=== PATIENT | male | born 1935 | race Caucasian/White ===

== ENCOUNTER 2017-08-22 14:32 | Inpatient (IN) ==
--- NOTE | 2017-08-22 14:37 | Emergency Department Note ---
Disposition Clinical Impression: Vision loss of left eye, Central retinal artery occlusion of left eye, Stroke Disposition: Admitted As Inpatient Condition: Good General Adult HPI - General Chief complaint: ED Eye Problems Stated complaint: vision loss to left eye Time Seen by Provider: 08/22/17 14:33 - Related Data Home Medications Medication Instructions Recorded Confirmed Dorzolamide/Timolol [Cosopt] 1 drop BOTH EYES BID 08/22/17 08/22/17 Escitalopram [Lexapro] 10 mg PO DAILY 08/22/17 08/22/17 Latanoprost [Xalatan] 1 drop BOTH EYES HS 08/22/17 08/22/17 Terazosin [Hytrin] 1 mg PO HS 08/22/17 08/22/17 Vit C/E/Zn/Coppr/Lutein/Zeaxan 1 cap PO BID 08/22/17 08/22/17 [Preservision Areds 2 Softgel] Allergies Allergy/AdvReac Type Severity Reaction Status Date / Time codeine AdvReac Anaphylaxis Verified 08/22/17 17:48 Course Vital Signs Temperature 97.7 F 08/22/17 14:33 Pulse Rate 68 08/22/17 14:33 Respiratory Rate 16 08/22/17 14:33 Blood Pressure 160/84 08/22/17 14:33 O2 Sat by Pulse Oximetry 99 08/22/17 14:33 Temperature 97.9 F 08/23/17 11:30 Pulse Rate 79 08/23/17 11:30 Respiratory Rate 18 08/23/17 11:30 Blood Pressure 143/75 08/23/17 11:30 O2 Sat by Pulse Oximetry 95 08/23/17 11:30 Oxygen Delivery Oxygen Delivery Room Air Medical Decision Making - Lab Data Result diagrams: 08/23/17 07:15 08/23/17 07:15 Lab Results 08/22/17 08/22/17 08/22/17 Range/Units 14:53 14:53 14:53 WBC 8.4 (4.3-11.1) K/mcL RBC 5.73 H (4.19-5.50) M/mcL Hgb 13.9 (12.9-16.9) g/dL Hct 45.5 (37.5-50.1) % MCV 79.4 L (83.0-100.0) fL MCH 24.3 L (28.0-33.3) pg MCHC 30.5 L (31.6-35.5) g/dL RDW 14.3 (11.5-14.5) % Plt Count 252 (140-400) K/mcL MPV 10.1 (9.4-12.4) fL Immature Gran % 0.2 (0-4) % Seg Neutrophils % 60.6 % Lymphocytes % 26.4 % Monocytes % 8.6 % Eosinophils % 3.0 % Basophils % 1.2 % Neutrophils # 5.1 (1.6-8.9) K/mcL Lymphocytes # 2.2 (0.6-4.6) K/mcL Monocytes # 0.7 (0.0-1.3) K/mcL Eosinophils # 0.3 (0.0-0.6) K/mcL Basophils # 0.1 (0.0-0.2) K/mcL ESR (0-10) mm/hr PT 11.3 (9.4-12.1) Seconds INR 1.1 Sodium 136 (136-145) mEq/L Potassium 4.3 (3.5-4.5) mEq/L Chloride 102 (98-109) mEq/L Carbon Dioxide 24 (19-29) mEq/L BUN 11 (8-26) mg/dL Creatinine 0.85 (0.72-1.25) mg/dL Est GFR ( Amer) > 60 (> 60) Est GFR (Non-Af Amer) > 60 (> 60) BUN/Creatinine Ratio 13 (6-26) Glucose 107 H (70-99) mg/dL Calculated Osmolality 282 (280-300) Calcium 9.7 (8.6-10.8) mg/dL Total Bilirubin 0.5 (0.2-1.2) mg/dL AST 14 (5-34) Units/L ALT 11 (0-55) Units/L Alkaline Phosphatase 105 (38-126) Units/L C-Reactive Protein 11 H (Less than 5) mg/L Serum Total Protein 7.4 (6.0-8.3) g/dL Albumin 3.9 (3.5-5.0) g/dL Globulin 3.5 (2.4-3.5) g/dL Albumin/Globulin Ratio 1.1 (1.1-2.2) 10/27/17 Range/Units 14:54 WBC (4.3-11.1) K/mcL RBC (4.19-5.50) M/mcL Hgb (12.9-16.9) g/dL Hct (37.5-50.1) % MCV (83.0-100.0) fL MCH (28.0-33.3) pg MCHC (31.6-35.5) g/dL RDW (11.5-14.5) % Plt Count (140-400) K/mcL MPV (9.4-12.4) fL Immature Gran % (0-4) % Seg Neutrophils % % Lymphocytes % % Monocytes % % Eosinophils % % Basophils % % Neutrophils # (1.6-8.9) K/mcL Lymphocytes # (0.6-4.6) K/mcL Monocytes # (0.0-1.3) K/mcL Eosinophils # (0.0-0.6) K/mcL Basophils # (0.0-0.2) K/mcL ESR 81 H (0-10) mm/hr PT (9.4-12.1) Seconds INR Sodium (136-145) mEq/L Potassium (3.5-4.5) mEq/L Chloride (98-109) mEq/L Carbon Dioxide (19-29) mEq/L BUN (8-26) mg/dL Creatinine (0.72-1.25) mg/dL Est GFR ( Amer) (> 60) Est GFR (Non-Af Amer) (> 60) BUN/Creatinine Ratio (6-26) Glucose (70-99) mg/dL Calculated Osmolality (280-300) Calcium (8.6-10.8) mg/dL Total Bilirubin (0.2-1.2) mg/dL AST (5-34) Units/L ALT (0-55) Units/L Alkaline Phosphatase (38-126) Units/L C-Reactive Protein (Less than 5) mg/L Serum Total Protein (6.0-8.3) g/dL Albumin (3.5-5.0) g/dL Globulin (2.4-3.5) g/dL Albumin/Globulin Ratio (1.1-2.2) Attestation Statement - Attestation Attestation: I examined this patient and my medical decision-making was reviewed with the Resident Physician. I agree with the documented findings, disposition and treatment plan as described except to the extent set forth below. [id number] time provided Patient arrives as a transfer from the [facility]. He states he went to bed at 21:00 last night without symptoms. He awoke at 5 AM which is 9 hours and 30 minutes prior to arrival with complete vision loss out of his left eye. He was diagnosed with suspected central retinal artery occlusion by an import/export administrator at the [facility]. He was sent here for further evaluation. He appears in no acute distress on exam
--- NOTE | 2017-08-22 14:57 | Emergency Department Note ---
Disposition Clinical Impression: Vision loss of left eye, Central retinal artery occlusion of left eye Stroke Qualifiers: CVA mechanism: unspecified Qualified Code(s): I63.9 - Cerebral infarction, unspecified Disposition: Admitted As Inpatient Condition: Good General Adult HPI - General Chief complaint: ED Eye Problems Stated complaint: vision loss to left eye Time Seen by Provider: 08/22/17 14:33 Source: patient, EMS Limitations: no limitations - History of Present Illness HPI Narrative: Patient presents from the [facility] where he was previously evaluated for possible retinal artery occlusion. The patient states that he went to bed without symptoms. Woke up at 5 AM with the symptoms. Has spent the day at the [facility] where he saw ophthalmology and was diagnosed with retinal artery occlusion. The patient was transferred here for further evaluation as they do not have CT scan available to them. Patient's medications include dorzolamide/timolol eyedrops. Escitalopram. Maintain a June eyedrops. Multivitamin. Past medical history includes helicobacter gastritis. Pancreatitis. Hyponatremia. Glaucoma. Macular degeneration. Upper GI bleed. Arthritis. Hyperlipidemia. BPH. Pain Scale: 0 - Related Data Home Medications Medication Instructions Recorded Confirmed Dorzolamide/Timolol [Cosopt] 1 drop BOTH EYES BID 08/22/17 08/22/17 Escitalopram [Lexapro] 10 mg PO DAILY 08/22/17 08/22/17 Latanoprost [Xalatan] 1 drop BOTH EYES HS 08/22/17 08/22/17 Terazosin [Hytrin] 1 mg PO HS 08/22/17 08/22/17 Vit C/E/Zn/Coppr/Lutein/Zeaxan 1 cap PO BID 08/22/17 08/22/17 [Preservision Areds 2 Softgel] Allergies Allergy/AdvReac Type Severity Reaction Status Date / Time codeine AdvReac Anaphylaxis Verified 08/22/17 17:48 Review of Systems: GENERAL: ~No weight change, change in appetite, thirst, fever or chills. HEENT: ~Complete vision loss of left eye CARDIOPULMONARY: ~No chest pain, palpitations or shortness of breath. GASTROINTESTINAL: ~No anorexia, nausea or vomiting. GENITOURINARY: ~No dysuria or pyuria. ENDOCRINE: ~No goiter, lethargy or heat/cold intolerance. HEMATOLOGY/ONCOLOGY: ~No pallor, bruising or bleeding. MUSCULOSKELETAL: ~No change in strength. No swelling. NEUROLOGIC: ~No headache or loss of consciousness. PSYCHIATRIC: ~No change in personality, affect or depression. Past Medical History - Past Medical History Medical history: Reports: hyperlipidemia Psychiatric history: Reports: no psych history - Social History Smoking Status: Never smoker Smokeless Tobacco Status: No Alcohol use: Reports: none Drug use: Reports: none Physical Exam General: Well appearing, nontoxic, no acute distress Head: Normocephalic Atraumatic Eyes: PERRL, EOMI, vision loss in the left eye. Is able to differentiate light and dark in left eye. ENT: Airway patent, no stridor Neck: supple, no meningismus Chest: Lungs clear to auscultation bilateral Cardiac: Regular rate and rhythm, no murmurs, rubs or gallops Abdomen: soft, nontender, nondistended; no guarding, rebound, or tenderness to percussion Musculoskeletal: Calves symmetric, nontender, no palpable cord Skin: No rash, normal skin tone Neuro: Alert and Oriented to person, place, and time; No focal deficit, CN 2-12 symmetric and intact - General Limitations: no limitations General appearance: alert, in no apparent distress Course - Consultations Consultation #1: The case discussed discussed with Dr. Delgado who was at bedside with initial impression and plan as follows: Patient with some central retinal artery occlusion. Patient to be started on high-dose steroids. Patient will receive 1 g of Solu-Medrol in the emergency department and then be continued on 250 mg every 6 hours while in the hospital. Patient will be discharged with 80 to 100 mg of prednisone daily after discharge. Case was discussed with Dr. Lawson of the retina group listed below. The patient is to follow-up with her after discharge. Follow-up should be 2-3 days upon discharge. The patient should undergo a temporal artery biopsy for further evaluation of possible giant cell arteritis. ENT has been consultative and they may be able to do this as an outpatient early next week. However if there is any problem in getting this accomplished, Dr. Delgado recommends following up with [facility] for temporal artery biopsy. Pamela Lawson DO -retinal specialist- [facility] [phone] Jos[facility] or one of his assciates ([facility]) Address: [address] [place] [address] Consultation #2: Discussed with Dr. Wise. Patient accepted for admission. Vital Signs Temperature 97.7 F 08/22/17 14:33 Pulse Rate 68 08/22/17 14:33 Respiratory Rate 16 08/22/17 14:33 Blood Pressure 160/84 08/22/17 14:33 O2 Sat by Pulse Oximetry 99 08/22/17 14:33 Temperature 97.7 F 08/22/17 14:33 Pulse Rate 68 08/22/17 14:33 Respiratory Rate 16 08/22/17 14:33 Blood Pressure 160/84 08/22/17 14:33 O2 Sat by Pulse Oximetry 99 08/22/17 14:33 Oxygen Delivery Oxygen Delivery Room Air Medical Decision Making - Medical Records Medical records reviewed: Yes I reviewed the patient's medical records. - Lab Data Lab results reviewed: Yes I reviewed the patient's lab results. Result diagrams: 08/22/17 14:53 08/22/17 14:53 Lab Results 08/22/17 08/22/17 08/22/17 Range/Units 14:53 14:53 14:53 WBC 8.4 (4.3-11.1) K/mcL RBC 5.73 H (4.19-5.50) M/mcL Hgb 13.9 (12.9-16.9) g/dL Hct 45.5 (37.5-50.1) % MCV 79.4 L (83.0-100.0) fL MCH 24.3 L (28.0-33.3) pg MCHC 30.5 L (31.6-35.5) g/dL RDW 14.3 (11.5-14.5) % Plt Count 252 (140-400) K/mcL MPV 10.1 (9.4-12.4) fL Immature Gran % 0.2 (0-4) % Seg Neutrophils % 60.6 % Lymphocytes % 26.4 % Monocytes % 8.6 % Eosinophils % 3.0 % Basophils % 1.2 % Neutrophils # 5.1 (1.6-8.9) K/mcL Lymphocytes # 2.2 (0.6-4.6) K/mcL Monocytes # 0.7 (0.0-1.3) K/mcL Eosinophils # 0.3 (0.0-0.6) K/mcL Basophils # 0.1 (0.0-0.2) K/mcL ESR (0-10) mm/hr PT 11.3 (9.4-12.1) Seconds INR 1.1 Sodium 136 (136-145) mEq/L Potassium 4.3 (3.5-4.5) mEq/L Chloride 102 (98-109) mEq/L Carbon Dioxide 24 (19-29) mEq/L BUN 11 (8-26) mg/dL Creatinine 0.85 (0.72-1.25) mg/dL Est GFR ( Amer) > 60 (> 60) Est GFR (Non-Af Amer) > 60 (> 60) BUN/Creatinine Ratio 13 (6-26) Glucose 107 H (70-99) mg/dL Calculated Osmolality 282 (280-300) Calcium 9.7 (8.6-10.8) mg/dL Total Bilirubin 0.5 (0.2-1.2) mg/dL AST 14 (5-34) Units/L ALT 11 (0-55) Units/L Alkaline Phosphatase 105 (38-126) Units/L C-Reactive Protein 11 H (Less than 5) mg/L Serum Total Protein 7.4 (6.0-8.3) g/dL Albumin 3.9 (3.5-5.0) g/dL Globulin 3.5 (2.4-3.5) g/dL Albumin/Globulin Ratio 1.1 (1.1-2.2) 08/22/17 Range/Units 14:54 WBC (4.3-11.1) K/mcL RBC (4.19-5.50) M/mcL Hgb (12.9-16.9) g/dL Hct (37.5-50.1) % MCV (83.0-100.0) fL MCH (28.0-33.3) pg MCHC (31.6-35.5) g/dL RDW (11.5-14.5) % Plt Count (140-400) K/mcL MPV (9.4-12.4) fL Immature Gran % (0-4) % Seg Neutrophils % % Lymphocytes % % Monocytes % % Eosinophils % % Basophils % % Neutrophils # (1.6-8.9) K/mcL Lymphocytes # (0.6-4.6) K/mcL Monocytes # (0.0-1.3) K/mcL Eosinophils # (0.0-0.6) K/mcL Basophils # (0.0-0.2) K/mcL ESR 81 H (0-10) mm/hr PT (9.4-12.1) Seconds INR Sodium (136-145) mEq/L Potassium (3.5-4.5) mEq/L Chloride (98-109) mEq/L Carbon Dioxide (19-29) mEq/L BUN (8-26) mg/dL Creatinine (0.72-1.25) mg/dL Est GFR ( Amer) (> 60) Est GFR (Non-Af Amer) (> 60) BUN/Creatinine Ratio (6-26) Glucose (70-99) mg/dL Calculated Osmolality (280-300) Calcium (8.6-10.8) mg/dL Total Bilirubin (0.2-1.2) mg/dL AST (5-34) Units/L ALT (0-55) Units/L Alkaline Phosphatase (38-126) Units/L C-Reactive Protein (Less than 5) mg/L Serum Total Protein (6.0-8.3) g/dL Albumin (3.5-5.0) g/dL Globulin (2.4-3.5) g/dL Albumin/Globulin Ratio (1.1-2.2) - Radiology Data Radiology results reviewed: Yes I reviewed the patient's radiology results. - EKG Data EKG #1 EKG attestation: Yes I reviewed and interpreted this EKG. EKG results narrative: EKG shows sinus bradycardia with ventricular rate of 58. FL interval 197. QRS 82. QTC 422. Patient has no significant ST elevations or depressions. Patient does have significant T-wave inversions in V3, V4, V5, V6. No previous EKG for comparison.
[2017-08-22 15:18] LABS: Basophils # 0.1 K/mcL (0.0-0.2); Basophils % 1.2 %; Eosinophils # 0.3 K/mcL (0.0-0.6); Hematocrit 45.5 % (37.5-50.1); Hemoglobin 13.9 g/dL (12.9-16.9); Immature Granulocytes % 0.2 % (0-4); Lymphocytes # 2.2 K/mcL (0.6-4.6); Lymphocytes % 26.4 %; Mean Corpuscular HGB Conc 30.5 g/dL (31.6-35.5); Mean Corpuscular Hemoglobin 24.3 pg (28.0-33.3); Mean Corpuscular Volume 79.4 fL (83.0-100.0); Mean Platelet Volume 10.1 fL (9.4-12.4); Monocytes # 0.7 K/mcL (0.0-1.3); Monocytes % 8.6 %; Neutrophils # 5.1 K/mcL (1.6-8.9); Platelet Count 252 K/mcL (140-400); Red Blood Count 5.73 M/mcL (4.19-5.50); Red Cell Distribution Width 14.3 % (11.5-14.5); Segmented Neutrophils % 60.6 %
[2017-08-22 15:32] LABS: INR 1.1; Prothrombin Time 11.3 Seconds (9.4-12.1)
[2017-08-22 15:34] LABS: Alanine Aminotransferase 11 Units/L (0-55); Albumin 3.9 g/dL (3.5-5.0); Albumin/Globulin Ratio 1.1 (1.1-2.2); Alkaline Phosphatase 105 Units/L (38-126); Aspartate Amino Transferase 14 Units/L (5-34); BUN/Creatinine Ratio 13 (6-26); Bilirubin,Total 0.5 mg/dL (0.2-1.2); Blood Urea Nitrogen 11 mg/dL (8-26); C-Reactive Protein 11 mg/L (Less than 5); Calcium 9.7 mg/dL (8.6-10.8); Carbon Dioxide 24 mEq/L (19-29); Chloride 102 mEq/L (98-109); Globulin 3.5 g/dL (2.4-3.5); Glucose 107 mg/dL (70-99); Osmolality,Calculated 282 (280-300); Potassium 4.3 mEq/L (3.5-4.5); Sodium 136 mEq/L (136-145); Total Protein 7.4 g/dL (6.0-8.3); eGFR For African Americans > 60 (> 60); eGFR For Non-African Americans > 60 (> 60)
[2017-08-22] MEDS ORDERED: methylPREDNISolone 125 MG/2 ML VIAL IVP ONE (19:05)
[2017-08-22] MEDS ORDERED: methylPREDNISolone 125 MG/2 ML VIAL ONE (19:53)
[2017-08-22] MEDS ORDERED: Naloxone 0.4 MG/ML INJ IVP PRN (22:00)
[2017-08-22] MEDS ORDERED: Ondansetron 4 MG/2 ML VIAL IVP PRN (22:00)
[2017-08-22] MEDS ORDERED: Acetaminophen 325 MG TABLET PO PRN (22:00)
[2017-08-22] MEDS ORDERED: Ketorolac 30 MG/ML VIAL IVP PRN (22:00)
--- NOTE | 2017-08-22 22:09 | Internal Med History&Physical ---
<Gaetano Hernandez - Last Filed: 08/22/17 22:17> Date of Encounter: 08/22/17 Time of Encounter: 22:06 Assessment and Plan (1) Vision loss of left eye Current visit: Yes Status: Acute - Sudden vision loss on waking this AM. Last known well 2100 last night when he went to bed. - opthamologist, Dr. Lawson, in ED. Suspect central retinal artery occlusion but recommends temporal artery biopsy to rule out giant cell arteritis - CTA head done in ED showed no acute process. - Optho recommended 1g methlprednisone in ED followed by 250 mg q6hr - ENT consulted for bx, state he can follow up outpatient in a couple days. (2) Central retinal artery occlusion of left eye Current visit: Yes Status: Acute management and plan as above. - Continue steroids and rule out temporal arteritis (3) HLD (hyperlipidemia) Current visit: Yes Status: Acute - Continue home meds. Qualifiers: Hyperlipidemia type: unspecified Qualified Code(s): E78.5 - Hyperlipidemia , unspecified (4) DVT prophylaxis Current visit: Yes Status: Acute heparin 5000 units q12 Internal Medicine - H&P: HPI Chief complaint: left eye vision loss Admitted From: Emergency Dept Plans for Post Hospital Care: Home History of present illness: Mr. Augustine is a 82 year old male who presents with a complaint of complete vision loss in his left eye. His last known well was when he went to bed last evening at 2100, he awoke with his symptoms. He recently had bilteraly cataract surgery 2 months ago without complications. He was previously healthy denying any PMHx. He denies any symptoms of headache, fevers, chills, pain, trauma, weakness, numbness, tingling. He has never experienced these symptoms before. In ED, CT head with contrast showed no acute process. opthamology, Dr. Lawson, consulted in ED. Recommended Methylprednisone 1 g initially followed by 250 mg every 6 hours while in the hospital. Patient will be discharged with 80 to 100 mg of prednisone daily after discharge. The patient should undergo a temporal artery biopsy for further evaluation of possible giant cell arteritis while inpatient. ENT has been consulted and they may be able to do this as an outpatient early next week. CRP 11. Past Med Surg Social Fam HX - Past Medical History Medical history: hyperlipidemia Psychiatric history: no psych history - Past Surgical History Surgical History: cataract (b/l) - Social History Smoking Status: Never smoker Smokeless Tobacco Status: No Alcohol use: none Drug use: none - Family History Father Hx Family Neurologic Disorders: Yes (cva) Internal Medicine - H&P: Meds Dorzolamide/Timolol [Cosopt] 1 drop BOTH EYES BID 08/22/17 [History] Escitalopram [Lexapro] 10 mg PO DAILY 08/22/17 [History] Latanoprost [Xalatan] 1 drop BOTH EYES HS 08/22/17 [History] Terazosin [Hytrin] 1 mg PO HS 08/22/17 [History] Vit C/E/Zn/Coppr/Lutein/Zeaxan [Preservision Areds 2 Softgel] 1 cap PO BID 08/22 [History] 3 Allergy/AdvReac Type Severity Reaction Status Date / Time codeine AdvReac Anaphylaxis Verified 08/22/17 17:48 All Systems PM: A 10-system review of systems was performed and is negative for pertinent findings except as documented above in the HPI. - Constitutional Constitutional: no chills, no fatigue, no fever(s) - EENT Eyes: change in vision, loss of vision, no diplopia, no discharge, no irritation , no pain, no photophobia Ears: no decreased hearing, no ear pain, no tinnitus - Cardiovascular Cardiovascular ROS IM: lightheadedness, no chest pain, no diaphoresis, no dyspnea, no dyspnea on exertion, no irregular heart rhythm, no palpitations - Respiratory Respiratory: no dyspnea, no dyspnea on exertion, no wheezing - Gastrointestinal Gastrointestinal: no abdominal pain, no nausea, no vomiting - Musculoskeletal Musculoskeletal ROS IM: no muscle weakness, no numbness, no tingling - Neurological Neurological ROS: dizziness, loss of vision, no abnormal hearing, no abnormal speech, no confusion, no focal weakness, no numbness, no tingling, no vertigo - Constitutional Vitals: Temp Pulse Resp BP Pulse Ox 97.6 F 77 20 136/77 96 08/22/17 20:59 08/22/17 20:59 08/22/17 20:59 08/22/17 20:59 08/22/17 20:59 Exam: Gen.: Vitals noted. No acute distress. AAOx3 HEENT: Left pupil non reactive to light, right pupil minimally reactive, no concentric constriction. Visual zamorano non existent in left. States he can see blurry shapes. EOMI. oropharynx clear, Normocephalic, atraumatic. non tender temporal region. Cardiac: RRR, no murmur, +S1/S2 Pulmonary: CTA bilaterally, no wheezes, rales or rhonchi, equal chest expansion MSK: ROM intact, no joint swelling noted Extremities: no BLE edema, nontender calf, no cyanosis or clubbing. Strength 5/ 5. Neuro: A&Ox3, moves all extremities, no focal deficits. CN IV-XII intact. No sensory deficits. NIH score 0. Psych: Appropriate mood and behavior Internal Med - H&P Results - Labs CBC & Chem 7: 08/22/17 14:53 08/22/17 14:53 <Hugo Berumen - Last Filed: 08/23/17 05:58> Date of Encounter: 08/22/17 Internal Medicine - H&P: HPI History of present illness: Mr. Augustine is a 82 year old male All Systems PM: A 10-system review of systems was performed and is negative for pertinent findings except as documented above in the HPI. - Constitutional Vitals: Temp Pulse Resp BP Pulse Ox 97.7 F 95 20 148/74 96 08/23/17 00:27 08/23/17 00:27 08/23/17 00:27 08/23/17 00:27 08/23/17 00:27 Internal Med - H&P Results - Labs CBC & Chem 7: 08/22/17 14:53 08/22/17 14:53 - Diagnostic Studies CT scan - head Status: image reviewed by me - Attending Attestation I personally interviewed and examined this patient and my medical decision- making was reviewed with the Resident Physician. I agree with the documented findings, disposition and treatment plan as described except to the extent set forth below. Concern for arteritis, steroid started. Hugo Berumen MD, MPH Hospitalist
[2017-08-23] MEDS: methylPREDNISolone 250 MG in 0.9 % Sodium Chloride 50 ML IVPB SCH ×5 (00:30→22:58)
[2017-08-23] MEDS: *HR* Heparin 5,000 UNIT/ML VIAL SQ SCH ×2 (05:47→18:19)
[2017-08-23 07:46] LABS: BUN/Creatinine Ratio 18 (6-26); Blood Urea Nitrogen 16 mg/dL (8-26); Calcium 9.8 mg/dL (8.6-10.8); Carbon Dioxide 25 mEq/L (19-29); Chloride 104 mEq/L (98-109); Glucose 160 mg/dL (70-99); Osmolality,Calculated 291 (280-300); Potassium 4.3 mEq/L (3.5-4.5); Sodium 138 mEq/L (136-145); eGFR For African Americans > 60 (> 60); eGFR For Non-African Americans > 60 (> 60)
[2017-08-23 07:50] LABS: Basophils % 0.2 %; Hematocrit 48.3 % (37.5-50.1); Hemoglobin 14.9 g/dL (12.9-16.9); Immature Granulocytes % 0.4 % (0-4); Lymphocytes % 17.7 %; Mean Corpuscular HGB Conc 30.8 g/dL (31.6-35.5); Mean Corpuscular Hemoglobin 24.4 pg (28.0-33.3); Mean Corpuscular Volume 79.1 fL (83.0-100.0); Mean Platelet Volume 9.8 fL (9.4-12.4); Monocytes % 0.4 %; Neutrophils # 4.4 K/mcL (1.6-8.9); Platelet Count 279 K/mcL (140-400); Red Blood Count 6.11 M/mcL (4.19-5.50); Red Cell Distribution Width 14.1 % (11.5-14.5); Segmented Neutrophils % 81.3 %
--- NOTE | 2017-08-23 18:23 | Internal Med Progress Note ---
Date of Encounter: 08/23/17 Time of Encounter: 18:20 - Assessment and plan (1) Vision loss of left eye Current Visit: Yes Status: Acute Assessment and plan: 82/male Admitted with sudden visual loss of the left eye. Patient was evaluated by quality checker in the emergency room and suspected central retinal artery occlusion. Recommended temporal artery biopsy and loading dose of steroids with pulse therapy every 6 hours. Noted that master of ceremonies team has informed ENT for possible temporal artery biopsy. Patient claims that he feels little better as compared to yesterday and he can see some shadows. (2) Central retinal artery occlusion of left eye Current Visit: Yes Status: Acute Assessment and plan: We will follow the recommendation from ophthalmology. (3) HLD (hyperlipidemia) Current Visit: Yes Status: Acute Assessment and plan: We will continue home meds. Qualifiers: Hyperlipidemia type: unspecified Qualified Code(s): E78.5 - Hyperlipidemia , unspecified (4) DVT prophylaxis Current Visit: Yes Status: Acute Assessment and plan: Heparin. Off note: This patient [facility] evaluated [facility] and he was told that he has some lesion back of his left eye 6 months ago. Patient has a scheduled follow-up with the [facility] coming up next month. Medical decision making: This patient has a moderate to severe risk of worsening in spite of being on appropriate treatment due to the underlying medical condition. - Subjective Interval history: Patient seen and examined. Chart reviewed. Patient's family member at the bedside. Patient denies any chest pain, shortness of breath, nausea, vomiting, abdominal pain dizziness or diarrhea. Patient claims that he started seeing little better as compared to the yesterday. - Constitutional Vitals: Temp Pulse Resp BP Pulse Ox 97.8 F 89 16 138/81 93 08/23/17 15:42 08/23/17 15:42 08/23/17 15:42 08/23/17 15:42 08/23/17 15:42 General appearance: Present: A&O X 3, pleasant, no acute distress, answers questions appropriately - Head Head exam: Present: atraumatic, normocephalic - Eye Eye exam: Present: PERRL, conjuntiva pink, sclera anicteric Pupils: Present: PERRL - Neck Neck exam general surgery: Present: supple, trachea midline. Absent: lymphadenopathy - Respiratory Respiratory exam: Present: CTAB. Absent: accessory muscle use, rales, rhonchi, wheezes - Cardiovascular Cardiovascular exam: Present: RRR, +S1, +S2. Absent: diastolic murmur, gallop, rubs, systolic murmur - GI/Abdominal GI/Abdominal exam: Present: normal bowel sounds, soft, no peritoneal signs. Absent: distended, tenderness - Extremities Exam Extremities exam: Present: warm, radial pulses palpable and symmetrical. Absent : calf tenderness, cyanotic, pedal edema - Neurological Exam Neurological exam: Present: CN II-XII intact, oriented X3, no focal deficits. Absent: pronater drift, facial droop, speech deficit - Skin Skin exam: Present: dry, intact Internal Medicine: Result - Labs CBC & Chem 7: 08/23/17 07:15 08/23/17 07:15 Labs: Short CBC 08/23/17 Range/Units 07:15 WBC 5.4 (4.3-11.1) K/mcL Hgb 14.9 (12.9-16.9) g/dL Hct 48.3 (37.5-50.1) % Plt Count 279 (140-400) K/mcL Neutrophils # 4.4 (1.6-8.9) K/mcL BMP 08/23/17 07:15 Sodium 138 Potassium 4.3 Chloride 104 Carbon Dioxide 25 BUN 16 Creatinine 0.87 Glucose 160 H Calcium 9.8 - ABG Interpretation ABG results: PT/INR, D-dimer PT 11.3 Seconds (9.4-12.1) 08/22/17 14:53 Consult Discharge Plan - Plan Referrals: [facility]Primary Care Provider[facility] - Johnny Lopez [Family Provider] -
[2017-08-23] MEDS: Latanoprost 2.5 ML BOTTLE BOTH EYES SCH (21:02)
[2017-08-23] MEDS: Dorzolamide/Timolol OPTH 10 ML BOTTLE BOTH EYES SCH (21:02)
[2017-08-24] MEDS: *HR* Heparin 5,000 UNIT/ML VIAL SQ SCH ×2 (04:34→18:15)
[2017-08-24] MEDS: methylPREDNISolone 250 MG in 0.9 % Sodium Chloride 50 ML IVPB SCH ×4 (04:34→23:15)
[2017-08-24 05:33] LABS: Basophils % 0.1 %; Hematocrit 42.7 % (37.5-50.1); Immature Granulocytes % 0.5 % (0-4); Lymphocytes # 1.2 K/mcL (0.6-4.6); Lymphocytes % 6.7 %; Mean Corpuscular HGB Conc 30.9 g/dL (31.6-35.5); Mean Corpuscular Hemoglobin 24.5 pg (28.0-33.3); Mean Corpuscular Volume 79.2 fL (83.0-100.0); Mean Platelet Volume 10.5 fL (9.4-12.4); Monocytes # 0.3 K/mcL (0.0-1.3); Monocytes % 1.6 %; Neutrophils # 16.5 K/mcL (1.6-8.9); Platelet Count 271 K/mcL (140-400); Red Blood Count 5.39 M/mcL (4.19-5.50); Red Cell Distribution Width 14.1 % (11.5-14.5); Segmented Neutrophils % 91.1 %
[2017-08-24 05:54] LABS: Alanine Aminotransferase 12 Units/L (0-55); Albumin 3.3 g/dL (3.5-5.0); Alkaline Phosphatase 94 Units/L (38-126); Aspartate Amino Transferase 17 Units/L (5-34); BUN/Creatinine Ratio 26 (6-26); Bilirubin,Total 0.4 mg/dL (0.2-1.2); Blood Urea Nitrogen 22 mg/dL (8-26); Calcium 9.4 mg/dL (8.6-10.8); Carbon Dioxide 21 mEq/L (19-29); Chloride 106 mEq/L (98-109); Globulin 3.4 g/dL (2.4-3.5); Glucose 163 mg/dL (70-99); Osmolality,Calculated 295 (280-300); Potassium 4.4 mEq/L (3.5-4.5); Sodium 139 mEq/L (136-145); Total Protein 6.7 g/dL (6.0-8.3); eGFR For African Americans > 60 (> 60); eGFR For Non-African Americans > 60 (> 60)
[2017-08-24 05:59] LABS: Hemoglobin 13.2 g/dL (12.9-16.9)
[2017-08-24] MEDS: Dorzolamide/Timolol OPTH 10 ML BOTTLE BOTH EYES SCH ×2 (08:05→19:43)
--- NOTE | 2017-08-24 17:50 | Internal Med Progress Note ---
Date of Encounter: 08/24/17 Time of Encounter: 17:48 - Assessment and plan (1) Vision loss of left eye Current Visit: Yes Status: Acute Assessment and plan: 82/male Admitted with sudden visual loss of the left eye. Patient was evaluated by gear tooth lapping machine operator in the emergency room and suspected central retinal artery occlusion. Recommended temporal artery biopsy and loading dose of steroids with pulse therapy every 6 hours. Noted that auctioneer automobile team has informed ENT for possible temporal artery biopsy. Patient claims that he feels little better as compared to yesterday and he can see some shadows. 08/24/2017 Patient claims that his vision in the left sided eye is improved as compared to yesterday and definitely improved as compared to the date of admission. Patient feels that the medication what we are giving our helping him to see better with his left eye. ENT on the board. We will get tomorrow rheumatology on the board. (2) Central retinal artery occlusion of left eye Current Visit: Yes Status: Acute Assessment and plan: We will follow the recommendation from ophthalmology. (3) HLD (hyperlipidemia) Current Visit: Yes Status: Acute Assessment and plan: We will continue home meds. Qualifiers: Hyperlipidemia type: unspecified Qualified Code(s): E78.5 - Hyperlipidemia , unspecified (4) DVT prophylaxis Current Visit: Yes Status: Acute Assessment and plan: Heparin. Off note: [facility] patient [facility] and he was told that he has some lesion back of his left eye 6 months ago. Patient has a scheduled follow-up with the [facility] coming up next month. Medical decision making: This patient has a moderate to severe risk of worsening in spite of being on appropriate treatment due to the underlying medical condition. - Subjective Interval history: Patient seen and examined. Chart reviewed. Patient's family member at the bedside. Patient denies any chest pain, shortness of breath, nausea, vomiting, abdominal pain dizziness or diarrhea. Patient claims that he started seeing little better as compared to the yesterday. 08/24/2017 Patient seen and examined. Chart reviewed. Patient's family member at bedside. Patient claims that his vision has improved a little bit as compared to yesterday. We will wait for EMB's recommendation tomorrow. - Constitutional Vitals: Temp Pulse Resp BP Pulse Ox 97.7 F 78 17 142/62 97 08/24/17 07:00 08/24/17 15:00 08/24/17 15:00 08/24/17 15:00 08/24/17 15:00 General appearance: Present: A&O X 3, pleasant, no acute distress, answers questions appropriately - Head Head exam: Present: atraumatic, normocephalic - Eye Eye exam: Present: PERRL, conjuntiva pink, sclera anicteric Pupils: Present: PERRL - Neck Neck exam general surgery: Present: supple, trachea midline. Absent: lymphadenopathy - Respiratory Respiratory exam: Present: CTAB. Absent: accessory muscle use, rales, rhonchi, wheezes - Cardiovascular Cardiovascular exam: Present: RRR, +S1, +S2. Absent: diastolic murmur, gallop, rubs, systolic murmur - GI/Abdominal GI/Abdominal exam: Present: normal bowel sounds, soft, no peritoneal signs. Absent: distended, tenderness - Extremities Exam Extremities exam: Present: warm, radial pulses palpable and symmetrical. Absent : calf tenderness, cyanotic, pedal edema - Neurological Exam Neurological exam: Present: CN II-XII intact, oriented X3, no focal deficits. Absent: pronater drift, facial droop, speech deficit - Skin Skin exam: Present: dry, intact Internal Medicine: Result - Labs CBC & Chem 7: 08/24/17 04:46 08/24/17 04:46 Labs: Short CBC 08/24/17 Range/Units 04:46 WBC 18.1 H D (4.3-11.1) K/mcL Hgb 13.2 D (12.9-16.9) g/dL Hct 42.7 (37.5-50.1) % Plt Count 271 (140-400) K/mcL Neutrophils # 16.5 H (1.6-8.9) K/mcL BMP 08/24/17 04:46 Sodium 139 Potassium 4.4 Chloride 106 Carbon Dioxide 21 BUN 22 Creatinine 0.86 Glucose 163 H Calcium 9.4 Liver Function 08/24/17 Range/Units 04:46 Total Bilirubin 0.4 (0.2-1.2) mg/dL AST 17 (5-34) Units/L ALT 12 (0-55) Units/L Alkaline Phosphatase 94 (38-126) Units/L Albumin 3.3 L (3.5-5.0) g/dL - ABG Interpretation ABG results: PT/INR, D-dimer PT 11.3 Seconds (9.4-12.1) 08/22/17 14:53 Consult Discharge Plan - Plan [facility]errals: [facility] [Primary Care Provider[facility] - Johnny Lopez [Family Provider] -
[2017-08-24] MEDS: Latanoprost 2.5 ML BOTTLE BOTH EYES SCH (19:43)
[2017-08-25 04:11] LABS: Hemoglobin 13.1 g/dL (12.9-16.9); Immature Granulocytes % 0.8 % (0-4); Lymphocytes # 0.9 K/mcL (0.6-4.6); Lymphocytes % 5.9 %; Mean Corpuscular HGB Conc 31.2 g/dL (31.6-35.5); Mean Corpuscular Hemoglobin 24.6 pg (28.0-33.3); Mean Corpuscular Volume 78.8 fL (83.0-100.0); Mean Platelet Volume 10.5 fL (9.4-12.4); Monocytes # 0.3 K/mcL (0.0-1.3); Monocytes % 1.7 %; Neutrophils # 14.2 K/mcL (1.6-8.9); Platelet Count 270 K/mcL (140-400); Red Blood Count 5.33 M/mcL (4.19-5.50); Red Cell Distribution Width 13.8 % (11.5-14.5); Segmented Neutrophils % 91.6 %
[2017-08-25 04:29] LABS: Alanine Aminotransferase 13 Units/L (0-55); Albumin 3.3 g/dL (3.5-5.0); Albumin/Globulin Ratio 1.1 (1.1-2.2); Alkaline Phosphatase 84 Units/L (38-126); Aspartate Amino Transferase 14 Units/L (5-34); BUN/Creatinine Ratio 28 (6-26); Bilirubin,Total 0.4 mg/dL (0.2-1.2); Blood Urea Nitrogen 24 mg/dL (8-26); Calcium 9.1 mg/dL (8.6-10.8); Carbon Dioxide 23 mEq/L (19-29); Chloride 104 mEq/L (98-109); Glucose 143 mg/dL (70-99); Osmolality,Calculated 293 (280-300); Sodium 138 mEq/L (136-145); Total Protein 6.3 g/dL (6.0-8.3); eGFR For African Americans > 60 (> 60); eGFR For Non-African Americans > 60 (> 60)
[2017-08-25] MEDS: methylPREDNISolone 250 MG in 0.9 % Sodium Chloride 50 ML IVPB SCH ×4 (05:00→23:37)
[2017-08-25] MEDS: *HR* Heparin 5,000 UNIT/ML VIAL SQ SCH ×2 (05:00→18:38)
--- NOTE | 2017-08-25 07:12 | Internal Med Progress Note ---
<Jeffery Katz - Last Filed: 08/25/17 11:21> Date of Encounter: 08/25/17 Time of Encounter: 07:11 - Assessment and plan (1) Vision loss of left eye Current Visit: Yes Status: Acute Assessment and plan: 82/male admitted with sudden visual loss of the left eye. Patient claims that his vision in the left sided eye is improved as compared to yesterday and definitely improved as compared to the date of admission. Patient feels that the medication what we are giving our helping him to see better with his left eye. ESR 8, CRP 11. Patient was evaluated by chlorinator in the emergency room and suspected central retinal artery occlusion. ENT consulted for possible temporal artery biopsy. Recommended temporal artery biopsy and loading dose of steroids with pulse therapy every 6 hours. After 3 days of pulse steroids, recommendations are to transition to oral therapy at 1 mg/kg or 60 mg daily Rheumatology consulted. Recommends further workup with carotid dopplers, echocardiography, and MRA Of note: This patient was evaluated by [facility] and he was told that he has some lesion back of his left eye 6 months ago. Patient has a scheduled follow-up with the [facility] coming up next month. (2) Central retinal artery occlusion of left eye Current Visit: Yes Status: Acute Assessment and plan: We will follow the recommendation from ophthalmology. (3) HLD (hyperlipidemia) Current Visit: Yes Status: Acute Assessment and plan: We will continue home meds. Qualifiers: Hyperlipidemia type: unspecified Qualified Code(s): E78.5 - Hyperlipidemia , unspecified (4) Obesity (BMI 30-39.9) Current Visit: Yes Status: Acute Assessment and plan: BMI 33.6 Diet and exercise discussed with patient (5) DVT prophylaxis Current Visit: Yes Status: Acute Assessment and plan: Heparin. Medical decision making: This patient has a moderate to severe risk of worsening in spite of being on appropriate treatment due to the underlying medical condition. - Subjective Interval history: Patient seen and examined. Chart reviewed. Patient's family member at the bedside. Patient denies any chest pain, shortness of breath, nausea, vomiting, abdominal pain dizziness or diarrhea. Patient claims that he started seeing little better as compared to the yesterday. 08/24/2017 Patient seen and examined. Chart reviewed. Patient's family member at bedside. Patient claims that his vision has improved a little bit as compared to yesterday. We will wait for EMB's recommendation tomorrow. 08/25/2017 Patient seen and examined. Chart reviewed. Patient sitting up at bedside and reports improved vision in left eye today since restarting eye drops. Patient denies any pain in temporal artery region. ENT consulted for possible temporal artery biopsy. Rheumatology consulted today. - Constitutional Vitals: Temp Pulse Resp BP Pulse Ox 97.5 F L 65 14 132/71 96 08/25/17 06:50 08/25/17 06:50 08/25/17 06:50 08/25/17 06:50 08/25/17 06:50 General appearance: Present: A&O X 3, pleasant, no acute distress, obese, answers questions appropriately - Head Head exam: Present: atraumatic, normal inspection, normocephalic - Eye Eye exam: Present: EOMI, PERRL, conjuntiva pink, sclera anicteric - ENT ENT exam: Present: mucous membranes moist, normal oropharynx - Neck Neck exam general surgery: Present: normal inspection, supple. Absent: lymphadenopathy, tenderness - Respiratory Respiratory exam: Present: CTAB. Absent: accessory muscle use, respiratory distress, wheezes, tachypnea - Cardiovascular Cardiovascular exam: Present: RRR, +S1, +S2, systolic murmur - GI/Abdominal GI/Abdominal exam: Present: soft. Absent: distended, normal bowel sounds, tenderness - Extremities Exam Extremities exam: Present: full ROM, normal inspection, warm. Absent: pedal edema, tenderness - Back Exam Back exam: Present: normal inspection. Absent: paraspinal tenderness, tenderness - Neurological Exam Neurological exam: Present: alert, oriented X3, no focal deficits. Absent: facial droop, speech deficit - Psychiatric Psychiatric exam: Present: normal affect, normal mood - Skin Skin exam: Present: dry, intact, warm Internal Medicine: Result - Labs CBC & Chem 7: 08/25/17 03:30 08/25/17 03:30 Labs: Short CBC 08/25/17 Range/Units 03:30 WBC 15.5 H (4.3-11.1) K/mcL Hgb 13.1 (12.9-16.9) g/dL Hct 42.0 (37.5-50.1) % Plt Count 270 (140-400) K/mcL Neutrophils # 14.2 H (1.6-8.9) K/mcL BMP 08/25/17 03:30 Sodium 138 Potassium 4.0 Chloride 104 Carbon Dioxide 23 BUN 24 Creatinine 0.86 Glucose 143 H Calcium 9.1 Liver Function 08/25/17 Range/Units 03:30 Total Bilirubin 0.4 (0.2-1.2) mg/dL AST 14 (5-34) Units/L ALT 13 (0-55) Units/L Alkaline Phosphatase 84 (38-126) Units/L Albumin 3.3 L (3.5-5.0) g/dL - ABG Interpretation ABG results: PT/INR, D-dimer PT 11.3 Seconds (9.4-12.1) 08/22/17 14:53 Consult Discharge Plan - Plan [facility]errals: [facility] [Primary Care Provider] - Johnny Lopez [Family Provider] - <Devonte Gotti P - Last Filed: 08/25/17 17:49> Date of Encounter: 08/25/17 - Assessment and plan (1) Vision loss of left eye Current Visit: Yes Status: Acute (2) Central retinal artery occlusion of left eye Current Visit: Yes Status: Acute (3) HLD (hyperlipidemia) Current Visit: Yes Status: Acute Qualifiers: Hyperlipidemia type: unspecified Qualified Code(s): E78.5 - Hyperlipidemia , unspecified (4) DVT prophylaxis Current Visit: Yes Status: Acute - Constitutional Vitals: Temp Pulse Resp BP Pulse Ox 97.8 F 71 20 158/77 95 08/25/17 15:06 08/25/17 15:06 08/25/17 15:06 08/25/17 15:06 08/25/17 11:29 Internal Medicine: Result - Labs CBC & Chem 7: 08/25/17 03:30 08/25/17 03:30 Labs: Short CBC 08/25/17 Range/Units 03:30 WBC 15.5 H (4.3-11.1) K/mcL Hgb 13.1 (12.9-16.9) g/dL Hct 42.0 (37.5-50.1) % Plt Count 270 (140-400) K/mcL Neutrophils # 14.2 H (1.6-8.9) K/mcL BMP 08/25/17 03:30 Sodium 138 Potassium 4.0 Chloride 104 Carbon Dioxide 23 BUN 24 Creatinine 0.86 Glucose 143 H Calcium 9.1 Liver Function 08/25/17 Range/Units 03:30 Total Bilirubin 0.4 (0.2-1.2) mg/dL AST 14 (5-34) Units/L ALT 13 (0-55) Units/L Alkaline Phosphatase 84 (38-126) Units/L Albumin 3.3 L (3.5-5.0) g/dL - ABG Interpretation ABG results: PT/INR, D-dimer PT 11.3 Seconds (9.4-12.1) 08/22/17 14:53 - Attending Attestation I examined this patient and my medical decision-making was reviewed with the Resident Physician. I agree with the documented findings, disposition and treatment plan as described except to the extent set forth below. 82M Left central retinal artery occlusion, temporal artery biopsy by ENT as an outpatient. Rheum consulted. Continue methlprednisone 250 mg q6hr. seen by Rheumatology and need to follow recommendations ESR 84
--- NOTE | 2017-08-25 09:44 | Rheumatology Consult Note ---
<Surinder Posadas - Last Filed: 08/25/17 09:31> Date of Encounter: 08/25/17 Time of Encounter: 09:30 Rheumatology Assess and Plan (1) Vision loss of left eye Current Visit: Yes Status: Acute Giant cell arteritis is high on the differential for this patient's symptoms Agree with steroid therapy After 3 days of pulse steroids, recommendations are to transition to oral therapy at 1 mg/kg or 60 mg daily Hopefully, temporal artery biopsy will definitively prove diagnosis Restart ASA 81mg after biopsy Additionally recommend further workup with carotid dopplers, echocardiography, and MRA to further eliminate other differential diagnoses (2) Elevated erythrocyte sedimentation rate Current Visit: Yes Status: Acute See plan of care above (3) Current use of steroid medication Current Visit: Yes Status: Acute Given patient age, recommend vitamin D and calcium supplementation With known history of gastric ulcers, additionally recommend PPI therapy Rheumatology HPI Consult date: 08/25/17 Requesting physician: Jeffery Katz Consult reason: 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 Augustine is a 82 year old male who arrived to [facility] as a transfer from the [place] with complaint of left monocular vision loss. He first noticed the problem on awakening that morning, whereas his vision had been completely normal when he went to bed the previous night. He endorsed only being able to see slight shadows. He admits to a mild discomfort of the affected eye. Additionally, he has been have shooting pains in his temporal region intermittently for the last 2-3 months. He denies CP, SOB, jaw claudication, and joint swelling. He is being followed by [facility] for a mass in the right eye, with repeat imaging in the next few months to determine stability. The patient was started on steroid therapy on 08/22/17 and reports improvement, particularly in the left and superior visual zamorano. Past Med Surg Social Fam HX - Past Medical History Medical history: hyperlipidemia Psychiatric history: no psych history - Past Surgical History Surgical History: cataract (b/l) - Social History Smoking Status: Never smoker Smokeless Tobacco Status: No Alcohol use: none Drug use: none - Family History Father Hx Family Neurologic Disorders: Yes (cva) Medications and Allergies Dorzolamide/Timolol [Cosopt] 1 drop BOTH EYES BID 08/22/17 [History] Escitalopram [Lexapro] 10 mg PO DAILY 08/22/17 [History] Latanoprost [Xalatan] 1 drop BOTH EYES HS 08/22/17 [History] Terazosin [Hytrin] 1 mg PO HS 08/22/17 [History] Vit C/E/Zn/Coppr/Lutein/Zeaxan [Preservision Areds 2 Softgel] 1 cap PO BID 08/22 [History] 3 Allergy/AdvReac Type Severity Reaction Status Date / Time codeine AdvReac Anaphylaxis Verified 08/22/17 17:48 All Systems Review: A 10-system review of systems was performed and is negative for pertinent findings except as documented above in the HPI. Rheumatology Exam Vital Signs, Last 4 Hours Temp Pulse Resp BP Pulse Ox 08/25/17 06:50 97.5 F L 65 14 132/71 96 Exam: General - Alert and oriented x 3, no acute distress and appears comfortable HEENT - Conjunctiva clear, no facial rash, no nasal or oral mucosal lesions/ ulcerations Heme/Lymph - No cervical or supraclavicular lymph node enlargement or tenderness. No pallor. Heart - S1S2 regular in rate and rhythm with Grade V Systolic murmur with radiation to the carotids and subclavians. No clicks or rubs. No peripheral edema. Radial pulses equal and strong Lungs - Unlabored breathing, scattered wheezes; no decrease in chest expansion Abdomen - Soft, nontender, nondistended. Unable to palpate any hepatosplenomegaly Skin - No clubbing, nodules, tophi, psoriasis, erythema, petichiae, malar rash, telangiectasias, sclerodactyly, nail pitting, onycholysis, digital ulcers Neurological - Gait normal, muscle strength 5/5 in all four extremities. Cranial nerves III-XII grossly intact. Musculoskeletal - Full ROM, no synovitis, no joint tenderness, no tenderness to palpation of spine. Rheumatology Results 08/25/17 03:30 08/25/17 03:30 All other labs normal. Consult Discharge Plan - Plan [facility]errals: [facility] [Primary Care Provider] - Johnny Lopez [Family Provider] - <Marek Mora - Last Filed: 08/25/17 17:03> Date of Encounter: 08/25/17 Rheumatology HPI History of present illness: Mr. Augustine is a 82 year old male All Systems Review: A 10-system review of systems was performed and is negative for pertinent findings except as documented above in the HPI. Rheumatology Exam Vital Signs, Last 4 Hours Temp Pulse Resp BP 08/25/17 15:06 97.8 F 71 20 158/77 Rheumatology Results 08/25/17 03:30 08/25/17 03:30 All other labs normal. - Attending Attestation I examined this patient and my medical decision making was reviewed with the resident physician. I agree with the documented findings, disposition and treatment as described with these exceptions. This is an 82-year-old male with PMH of HLD, diverticulitis, gastric ulcers who presents with sudden left vision loss. - Patient reports 2-3 month prodrome of sharp pains in front of head that he attributed to sinus. - Has been treated for right ocular lesion at [facility]; has had one evaluation. - No jaw claudication, no tongue pain, no throat burning, no chest pain, no shoulder/hip girdle pain. - ESR 81 - Head CT negative - He is now on pulsed dosed solu-medrol. At this time, we had a sudden monocular vision change and need to strongly consider giant cell arteritis as the cause. - I agree at this time with management of pulsed dosed corticosteroid dosing for a total of 3 days and then switch to prednisone 60 mg. - He has pending temporal artery biopsy - Continue ASA 81 mg po daily for now - Recommend CXR for any signs of mediastinal widening. - Recommend further workup for sudden monocular vision changes such as carotid workup and TTE. - Will continue to follow along.
[2017-08-25] MEDS: Dorzolamide/Timolol OPTH 10 ML BOTTLE BOTH EYES SCH ×2 (09:54→21:03)
--- NOTE | 2017-08-25 19:08 | Internal Medicine Consult Note ---
Date of Encounter: 08/22/17 Time of Encounter: 18:00 Internal Medicine - CN: HPI - Data of Consult Requesting Physician: Devonte Gotti MD - Consult Narrative Reason for consult: Vision loss in the left eye History of present illness: Mr. Augustine is a 82 year old male Who reported painless loss in vision in the left eye upon awakening on the morning of 08/22/2017. He denied scalp or temporal tenderness and jaw claudication he reported soreness of the right shoulder from a prior injury but otherwise no proximal limb stiffness and no significant recent weight loss. Examination revealed visual acuity with correction of 20/70 in the right eye with correction (near equivalent Snellen) and detection of hand movement at 2 feet in the left eye. His laboratory results and his chart were reviewed and of note was his sedimentation rate elevated at 81 mm/h and his C-reactive protein was 11. External examination was unremarkable revealing normal eyelids and normal anterior segments. Extraocular motility testing revealed full excursion of both eyes to all cardinal positions of gaze. Pupillary testing revealed that both pupils were equal. There was a profound +3 left relative afferent pupillary defect. The right pupil was round and reactive to light. Digital palpation estimation of intraocular pressures was normal at around 20 mmHg in each eye area. (he slit-lamp was unavailable for use. Further examination revealed a normal conjunctiva and a clear cornea and a deep anterior chamber in both eyes. Superior peripheral iridotomies were appreciated, otherwise the iris was normal in both eyes. The anterior chamber was deep and clear in both eyes. Both pupils were dilated with 1% tropicamide and 10% phenylephrine drops. Further examination after dilation revealed bilateral pseudophakia with posterior chamber intraocular lens implants noted. Ophthalmoscopy revealed a clear vitreous in both eyes. The cup-to-disc ratio was 0.3 in both eyes. There were pigmentary changes noted in the macula in both eyes. In the left eye the retina appeared lightened with a possible lewis-red spot. Balk scarring was noted in the retinal arterioles in the left eye. 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 Impression: 1. Central retinal artery occlusion in the left eye 2. 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 Within 1 week of starting the high-dose steroids patient should be scheduled for a left temporal artery biopsy. Patient should also be receiving his usual eye ,drops of dorzolamide/timolol twice daily in both eyes and latanoprost each evening in both eyes. The examination reported above was performed on 08/22/2017. I did stop and see the patient in his room on 08/25/2017 at around 7:00 PM. At this time he reported that he felt that his vision was improving in the left eye for the peripheral vision somewhat. A repeat check of his visual acuity in the left eye at this time revealed 20/200+2 (near equivalent Snellen). Confrontation visual zamorano were full and normal in the right eye and there was profound constriction of the confrontation visual zamorano in the left eye. Past Med Surg Social Fam HX - Past Medical History Medical history: hyperlipidemia Psychiatric history: no psych history - Past Surgical History Surgical History: cataract (b/l) - Social History Smoking Status: Never smoker Smokeless Tobacco Status: No Alcohol use: none Drug use: none - Family History Father Hx Family Neurologic Disorders: Yes (cva) Internal Medicine - CN: Meds Dorzolamide/Timolol [Cosopt] 1 drop BOTH EYES BID 08/22/17 [History] Escitalopram [Lexapro] 10 mg PO DAILY 08/22/17 [History] Latanoprost [Xalatan] 1 drop BOTH EYES HS 08/22/17 [History] Terazosin [Hytrin] 1 mg PO HS 08/22/17 [History] Vit C/E/Zn/Coppr/Lutein/Zeaxan [Preservision Areds 2 Softgel] 1 cap PO BID 08/22 [History] 3 Allergy/AdvReac Type Severity Reaction Status Date / Time codeine AdvReac Anaphylaxis Verified 08/22/17 17:48 Internal Medicine - CN: Exam - Constitutional Vitals: Temp Pulse Resp BP Pulse Ox 97.8 F 71 20 158/77 95 08/25/17 15:06 08/25/17 15:06 08/25/17 15:06 08/25/17 15:06 08/25/17 11:29 Internal Medicine - CN: Reslt - Labs CBC & Chem 7: 08/25/17 03:30 08/25/17 03:30 Labs: Short CBC 08/25/17 Range/Units 03:30 WBC 15.5 H (4.3-11.1) K/mcL Hgb 13.1 (12.9-16.9) g/dL Hct 42.0 (37.5-50.1) % Plt Count 270 (140-400) K/mcL Neutrophils # 14.2 H (1.6-8.9) K/mcL BMP 08/25/17 03:30 Sodium 138 Potassium 4.0 Chloride 104 Carbon Dioxide 23 BUN 24 Creatinine 0.86 Glucose 143 H Calcium 9.1 Liver Function 08/25/17 Range/Units 03:30 Total Bilirubin 0.4 (0.2-1.2) mg/dL AST 14 (5-34) Units/L ALT 13 (0-55) Units/L Alkaline Phosphatase 84 (38-126) Units/L Albumin 3.3 L (3.5-5.0) g/dL - ABG Interpretation ABG results: PT/INR, D-dimer PT 11.3 Seconds (9.4-12.1) 08/22/17 14:53 Consult Discharge Plan - Plan [facility]errals: [facility] [Primary Care Provider] - Johnny Lopez [Family Provider] -
[2017-08-25] MEDS: Latanoprost 2.5 ML BOTTLE BOTH EYES SCH (21:03)
[2017-08-26] MEDS: *HR* Heparin 5,000 UNIT/ML VIAL SQ SCH (05:14)
[2017-08-26] MEDS: methylPREDNISolone 250 MG in 0.9 % Sodium Chloride 50 ML IVPB SCH (05:14)
[2017-08-26 06:13] LABS: Hematocrit 42.9 % (37.5-50.1); Hemoglobin 13.4 g/dL (12.9-16.9); Mean Corpuscular HGB Conc 31.2 g/dL (31.6-35.5); Mean Corpuscular Hemoglobin 24.5 pg (28.0-33.3); Mean Corpuscular Volume 78.6 fL (83.0-100.0); Mean Platelet Volume 9.9 fL (9.4-12.4); Platelet Count 252 K/mcL (140-400); Red Blood Count 5.46 M/mcL (4.19-5.50); Red Cell Distribution Width 13.7 % (11.5-14.5)
[2017-08-26 06:26] LABS: BUN/Creatinine Ratio 30 (6-26); Blood Urea Nitrogen 23 mg/dL (8-26); Calcium 8.7 mg/dL (8.6-10.8); Carbon Dioxide 23 mEq/L (19-29); Chloride 105 mEq/L (98-109); Glucose 148 mg/dL (70-99); Osmolality,Calculated 294 (280-300); Sodium 139 mEq/L (136-145); eGFR For African Americans > 60 (> 60); eGFR For Non-African Americans > 60 (> 60)
[2017-08-26 06:40] VITALS: BP 138/79
[2017-08-26] MEDS: Dorzolamide/Timolol OPTH 10 ML BOTTLE BOTH EYES SCH (08:23)
[2017-08-26] MEDS ORDERED: predniSONE 10 MG TABLET PO SCH (09:00)
--- NOTE | 2017-08-26 09:36 | Discharge Summary ---
<Jeffery Katz - Last Filed: 08/26/17 13:09> Date of Encounter: 08/26/17 Time of Encounter: 09:32 - Discharge Diagnosis (1) Central retinal artery occlusion of left eye Priority: Primary Status: Acute (2) Vision loss of left eye Priority: Primary Status: Acute (3) Severe aortic valve stenosis Priority: Secondary Status: Chronic Comments: 3/6 WAYNE on cardiac auscultation, asymptomatic Echo reveals LVEF 60%, moderate LV diastlic dysfunction, mild concentric LVH, densely calcified aortic valve, severe aortic stensis 0.7 cm2 by Doppler, mild Mitral regurgitation, dense mitral annular calcification with probable mild- moderate mitral stenosis Recommend outpatient cardiology follow up for valve replacement (4) Mitral stenosis with regurgitation Priority: Secondary Status: Chronic Comments: Echo reveals LVEF 60%, moderate LV diastlic dysfunction, mild concentric LVH, densely calcified aortic valve, severe aortic stensis 0.7 cm2 by Doppler, mild Mitral regurgitation, dense mitral annular calcification with probable mild- moderate mitral stenosis Qualifiers: Cardiac valve disease etiology: rheumatic Qualified Code(s): 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 Atorvastatin [Lipitor] 40 mg PO HS #30 tablet Dorzolamide/Timolol [Cosopt] 1 drop BOTH EYES BID 30 Days #2 bottle Latanoprost [Xalatan] 1 drop BOTH EYES HS 30 Days #2 bottle Omeprazole [PriLOSEC] 20 mg PO DAILY@0630 #30 capsule. predniSONE [PredniSONE] 60 mg PO DAILY #30 tablet Home Medications: Escitalopram [Lexapro] 10 mg PO DAILY 08/22/17 [History] Terazosin [Hytrin] 1 mg PO HS 08/22/17 [History] Vit C/E/Zn/Coppr/Lutein/Zeaxan [Preservision Areds 2 Softgel] 1 cap PO BID 08/22 [History] Acetaminophen [Tylenol] 650 mg PO Q6HR PRN tablet 08/26/17 [Rx] Aspirin Enteric Coated [Aspirin EC] 81 mg PO DAILY #30 tablet. 08/26/17 [Rx] Atorvastatin [Lipitor] 40 mg PO HS #30 tablet 08/26/17 [Rx] Dorzolamide/Timolol [Cosopt] 1 drop BOTH EYES BID 30 Days #2 bottle 08/26/17 [Rx ] Latanoprost [Xalatan] 1 drop BOTH EYES HS 30 Days #2 bottle 08/26/17 [Rx] Omeprazole [PriLOSEC] 20 mg PO DAILY@0630 #30 capsule. 08/26/17 [Rx] predniSONE [PredniSONE] 60 mg PO DAILY #30 tablet 08/26/17 [Rx] Allergies/Adverse Reactions: 3 Allergy/AdvReac Type Severity Reaction Status Date / Time codeine AdvReac Anaphylaxis Verified 08/22/17 17:48 Procedures/tests Complete & Pending: Procedures Performed prior 72 hours Category Date Time Status EV carotid duplex imaging BI Routine Y 08/25/17 17:30 Completed EV echocardiogram Routine Y 08/25/17 17:30 Completed Date of admission: 08/22/17 20:32 [facility] Consults: 08/23/17 10:56 Consult to Invasive Line Access Team [CONS] Routine Reason for Consult: limited access Line Type: EPIV 08/25/17 08:13 Consult to Physician [CONS] Routine Consulting Provider: Marek Mora Reason for Consult: 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 temperol arteritis Call Completed: No - Patient Status Disposition: Home, Self-Care Condition: Good Functional capacity at discharge: independent ambulation Overall status at discharge: patient is back to baseline - Discharge Instructions Instructions: Prednisone (By mouth), Aortic Stenosis (DC), Cataracts (GEN), Cataracts, External Grinder (GEN) Follow [facility]: [facility] [Primary Care Provider[facility] - 09/01/17 11:30 am Additional Instructions: Start Atorvastatin and continue aspirin daily. Consider adding a beta-sana as an outpatient when bradycardia resolved. Continue eye drops twice a day until seen by Gas Station Service Attendant. Continue Prednisone 60 mg/day for 1 month. After that, the dose can be gradually reduced when appropriate per Dr. Mora. Schedule follow up appointment with Pulp Mixer/ Dr. Mora in 1-2 weeks Schedule follow up appointment with Cardiology in 1-2 weeks for aortic valve replacement Schedule follow up appointment with ENT (Ears, Nose, Throat) Surgeon in 1-2 weeks for temporal artery biopsy Schedule follow up appointment with Opthamologist in 1-2 weeks. Follow up with PCP at [facility] in 1-2 weeks. - Diet and Activity Activity: resume usual activities as tolerated Diet: advance to your usual diet Hospital course: Mr. Augustine is a 82 year old male - Time Spent with Patient Total time spent providing and/or coordinating discharge services: - Constitutional Vitals: Temp Pulse Resp BP Pulse Ox 97.5 F L 73 15 138/79 97 08/26/17 06:35 08/26/17 06:35 08/26/17 06:35 08/26/17 06:35 08/26/17 06:35 General appearance: Present: A&O X 3, pleasant, no acute distress, obese, answers questions appropriately <Josue Roland - Last Filed: 08/26/17 18:34> Date of Encounter: 08/26/17 - Discharge Diagnosis (1) Vision loss of left eye Status: Acute (2) Central retinal artery occlusion of left eye Status: Acute (3) Severe aortic valve stenosis Status: Chronic (4) Mitral stenosis with regurgitation Status: Chronic Qualifiers: Cardiac valve disease etiology: rheumatic Qualified Code(s): 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 (5) Obesity (BMI 30-39.9) Status: Acute (6) HLD (hyperlipidemia) Status: Acute Qualifiers: Hyperlipidemia type: mixed hyperlipidemia Qualified Code(s): E78.2 - Mixed hyperlipidemia Procedures/tests Complete & Pending: Procedures Performed prior 72 hours Category Date Time Status EV carotid duplex imaging BI Routine Y 08/25/17 17:30 Completed EV echocardiogram Routine Y 08/25/17 17:30 Completed Date of admission: 08/22/17 20:32 [facility] care physician: [facility] Consults: 08/23/17 10:56 Consult to Invasive Line Access Team [CONS] Routine Reason for Consult: limited access Line Type: EPIV 08/25/17 08:13 Consult to Physician [CONS] Routine Consulting Provider: Marek Mora Reason for Consult: 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 temperol arteritis Call Completed: No Hospital course: Mr. Augustine is a 82 year old male - Time Spent with Patient Total time spent providing and/or coordinating discharge services: 39min - Constitutional Vitals: Temp Pulse Resp BP Pulse Ox 97.5 F L 73 15 138/79 97 08/26/17 06:35 08/26/17 06:35 08/26/17 06:35 08/26/17 06:35 08/26/17 06:35 - Attending Attestation I examined this patient and my medical decision-making was reviewed with the Resident Physician on 08/26/17. I agree with the documented findings, disposition and treatment plan as described except to the extent set forth below. Mr Augustine has been admitted for acute vision loss which has improved. He is now afebrile with stable vitals. He is ready for discharge home. Exam Alert. Comfortable Heart reg with murmur Lungs clear No edema Plan D/C home today and follow up with PCP and cardiology.
[2017-08-26] MEDS ORDERED: predniSONE 10 MG TABLET PO ONE (09:47)
--- NOTE | 2017-08-26 13:40 | Rheumatology Progress Note ---
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 Continue prednisone 60 mg daily as outpatient Await outpatient biopsy by ENT Plan to follow up as outpatient after results obtained If biopsy is negative and no other diagnosis is made, steroids will continue on long-term taper for 12-18 months (2) Elevated erythrocyte sedimentation rate Status: Acute See plan of care above (3) Current use of steroid medication Status: Acute Given patient age, recommend vitamin D and calcium supplementation With known history of gastric ulcers, additionally recommend PPI therapy - Subjective Interval history: Patient reports interval improvement in vision in the left eye, though still mostly only seeing shadows Exam Exam: General - Alert and oriented x 3, no acute distress and appears comfortable HEENT - Conjunctiva clear, no facial rash, no nasal or oral mucosal lesions/ ulcerations Heme/Lymph - No cervical or supraclavicular lymph node enlargement or tenderness. No pallor. Heart - S1S2 regular in rate and rhythm with Grade IV Systolic murmur with radiation to the carotids and subclavians. No clicks or rubs. No peripheral edema. Radial pulses equal and strong Lungs - Unlabored breathing, scattered wheezes; no decrease in chest expansion Abdomen - Soft, nontender, nondistended. Unable to palpate any hepatosplenomegaly Skin - No clubbing, nodules, tophi, psoriasis, erythema, petichiae, malar rash, telangiectasias, sclerodactyly, nail pitting, onycholysis, digital ulcers Neurological - Gait normal, muscle strength 5/5 in all four extremities. Cranial nerves III-XII grossly intact. Musculoskeletal - Full ROM, no synovitis, no joint tenderness, no tenderness to palpation of spine. Objective Data 08/26/17 05:51 08/26/17 05:51 All other labs normal. Consult Discharge Plan - Plan Instructions: Prednisone (By mouth), Aortic Stenosis (DC), Cataracts (GEN), Cataracts, Roving Carrier (GEN) Additional Instructions: Start Atorvastatin and continue aspirin daily. Consider adding a beta-sana as an outpatient when bradycardia resolved. Continue eye drops twice a day until seen by Campaign Worker. Continue Prednisone 60 mg/day for 1 month. After that, the dose can be gradually reduced when appropriate per Dr. Mora. Schedule follow up appointment with Plastering Contractor/ Dr. Mora in 1-2 weeks Schedule follow up appointment with Cardiology in 1-2 weeks for aortic valve replacement Schedule follow up appointment with ENT (Ears, Nose, Throat) Surgeon in 1-2 weeks for temporal artery biopsy Schedule follow up appointment with Opthamologist in 1-2 weeks. Follow up with PCP at [place] in 1-2 weeks. [facility] Provider[facility] - 09/01/17 11:30 am Prescriptions: Aspirin Enteric Coated [Aspirin EC] 81 mg PO DAILY #30 tablet. Atorvastatin [Lipitor] 40 mg PO HS #30 tablet Dorzolamide/Timolol [Cosopt] 1 drop BOTH EYES BID 30 Days #2 bottle Latanoprost [Xalatan] 1 drop BOTH EYES HS 30 Days #2 bottle Omeprazole [PriLOSEC] 20 mg PO DAILY@0630 #30 capsule. predniSONE [PredniSONE] 60 mg PO DAILY #30 tablet <Marek Mroa W - Last Filed: 08/26/17 16:54> Date of Encounter: 08/26/17 Objective Data 08/26/17 05:51 08/26/17 05:51 All other labs normal. - Attending Attestation I examined this patient and my medical decision making was reviewed with the resident physician. I agree with the documented findings, disposition and treatment as described with these exceptions. Carotid duplex with minimal plaque. TTE without vegetations. Spoke with daughter; reports ophthalmology had wondered if he had other causes for poor vision when being seen at [facility]. At this point, GCA needs to be considered, biopsy pending. Would recommend DC on prednisone 60, reevaluate with myself or other cotton washer after biopsy. I would then touch base with current system safety manager to discuss plan. I discussed the plan with Dr. Roland and patient and his daughter at bedside in which questions were answered.
[2017-08-27] MEDS ORDERED: predniSONE 10 MG TABLET PO SCH (09:00)
--- NOTE | 2017-08-28 09:43 | Electrocardiograph Report ---
[place] [id number] Test Date: 2017-08-22 Pat Name: Ata Augustine Department: 104 Room: [facility] Gender: M Phlebotomy Tech: GIFTY : 1935 Requested By: Mateo Harden Order Number: [id number] Reading MD: Adeline Vick Measurements Intervals [place] Rate: 58 P: 48 [place]: 197 QRS: -5 QRSD: 92 T: 160 QT: 426 QTc: 422 Interpretive Statements SINUS BRADYCARDIA MODERATE T-WAVE ABNORMALITY, CONSIDER ANTEROLATERAL ISCHEMIA Electronically Signed On 08-28-2017 9:41:41 EDT by Adeline Vick
== END 2017-08-26 14:38 | disposition home or self-care (01) | DRG 123 ==
LOC: EMEROO 14:32 → 2NENU 14:32 → SUATTDRO 20:32 → 2NENU 20:42
PROVIDERS: ADMIT Family Medicine; ATTEND Internal Medicine

== ENCOUNTER 2017-11-25 13:58 | Observation (INO) ==
[2017-11-25] MEDS ORDERED: Naloxone 0.4 MG/ML INJ IVP PRN (17:58)
--- NOTE | 2017-11-25 21:15 | Internal Med History&Physical ---
<Lasha Howard - Last Filed: 11/25/17 22:21> Date of Encounter: 11/25/17 Time of Encounter: 16:30 Assessment and Plan (1) Dizziness Current visit: Yes Status: Acute Acute dizziness that occurred this morning and resolved. Must consider possibility of two new eye medications instilled this morning causing sx ( atropine may cause N/V in some pts.). Pt. had bilateral carotid Doppler imaging July which showed minimal plaque accumulation bilaterally. Echocardiogram in July showed LVEF 60%, moderate left ventricular diastolic dysfunction, mild concentric left ventricular hypertrophy, RV size not well visualized, function appears normal, densely calcified aortic valve that is not well-visualized, probably severe aortic stenosis by Doppler, mild mitral regurgitation, dense mitral annular calcification with probable mild to moderate mitral stenosis. Valve leaflets were not well visualized. Mild hypertension by TR gradient, 43 mmHg. No prior echo for comparison. Falls/safety precautions, up with assist, bed rest w/bathroom privileges w/assist. Pt. discussed w/Dr. Mcclendon who is in agreement w/plan of care. Pt. is high risk for further morbidity/injury d/t dizziness/vertigo of unknown cause, current leukocytosis, hyperglycemia, and hx. Observation. (2) Nausea and vomiting Current visit: Yes Status: Acute Acute nausea and vomiting this morning that resolved. Pt. denies previous occurrence or recent illness. IVP Zofran 4 mg Q8 for N/V. Continue pts. Prilosec. Monitor I&O. Qualifiers: Vomiting type: cyclical vomiting Vomiting Intractability: non-intractable Qualified Code(s): G43.A0 - Cyclical vomiting, not intractable (3) Leukocytosis Current visit: Yes Status: Acute Acute leukocytosis w/WBC of 13.3 on admission. Pt. is afebrile, asymptomatic for infection, and denies recent illness, fever, chills, SOB. Will do CXR 1- View. Blood cultures x 2 ordered. Will administer abx if CXR suggestive of pneumonia. Monitor pt. and f/u labs. Qualifiers: Leukocytosis type: unspecified Qualified Code(s): D72.829 - Elevated white blood cell count, unspecified (4) Hyperglycemia Current visit: Yes Status: Acute Acute hyperglycemia w/BG of 146 on admission. Pt. denies hx of DM. BG checks Q6. Will administer low-dose correction insulin sliding scale if warranted. A1c in a.m. labs. (5) Elevated brain natriuretic peptide (BNP) level Current visit: Yes Status: Acute Acutely elevated BNP level on admission. Pt. denies hx of CHF or cardiac issues/ dx. Pt. denies SOB or pedal edema. Will monitor pt. and f/u labs. (6) HLD (hyperlipidemia) Current visit: Yes Status: Chronic Hx of chronic HLD. Lipid panel in a.m. labs. Continue pts. Lipitor. Qualifiers: Hyperlipidemia type: mixed hyperlipidemia Qualified Code(s): E78.2 - Mixed hyperlipidemia (7) GERD (gastroesophageal reflux disease) Current visit: Yes Status: Chronic Hx of chronic GERD. IVP Zofran 4 mg every 8 hours for nausea and vomiting. Continue patient's Prilosec. 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 Patient to follow-up with PCP/ [facility] on OP basis. Will continue pts. 4 eye medications in a.m. and monitor for systemic sx such as dizziness, N/V. (9) DVT prophylaxis Current visit: Yes Status: Acute Heparin 5,000 units SQ Q8 for DVT prophylaxis. Monitor pt. for signs of bleeding. Internal Medicine - H&P: HPI Chief complaint: N/V/Dizziness Admitted From: Intrahospital Transfer Plans for Post Hospital Care: Home History of present illness: Mr. Augustine is a 82 year old male with medical history of hyperlipidemia and GERD presents from [facility] ED with chief complaint of dizziness, nausea , and vomiting that began this morning following the instillation of prescription eyedrops (2 of which were new). Patient states he got up and ate breakfast and instilled the eyedrops shortly afterwards. Patient states he became extremely dizzy and off-balance, became nauseous, and vomited. His daughter came to pick him up for an appointment and reported he had extreme difficulty with ambulation and had decreased responsiveness. Patient denies previous incident. Patient denies blacking out or falling, recent illness, fever, chills, headache, changes in vision, chest pain, palpitations, abdominal pain, diarrhea, constipation, back pain, neck pain, numbness, tingling, or syncope. Past Med Surg Social Fam HX - Past Medical History Source: patient, old records reviewed, obtained from family Medical history: GERD, hyperlipidemia Psychiatric history: no psych history - Past Surgical History Surgical History: cataract, cholecystectomy - Social History Smoking Status: Never smoker Smokeless Tobacco Status: No Alcohol use: none Drug use: none Current living situation: Home Activity Level: Independent ambulation Recent Out of Country Travel Within the Last 8 Weeks: No Exposure or Possible Exposure to Illness During Travel: No - Family History Father Race: Family Member Ethnicity: Non- Living Status: Age at : 73 Cause of : DM complications from amputation Hx Family Cardiac Disorders: Yes (Stroke) Hx Family Endocrine Disorder: Yes (DM) Mother Race: Family Member Ethnicity: Non- Living Status: Age at : 81 Cause of : Brain aneurysm Hx Family Cardiac Disorders: Yes (Aneurysm) Brother Race: Family Member Ethnicity: Non- Living Status: Age at : 50 Cause of : Cancer (Type unknown) Hx Family Cancer: Yes Sister Race: Family Member Ethnicity: Non- Living Status: Age at : 60 Cause of : NV Hx Family Cardiac Disorders: Yes (NV) Internal Medicine - H&P: Meds Terazosin [Hytrin] 1 mg PO HS 08/22/17 [History] Vit C/E/Zn/Coppr/Lutein/Zeaxan [Preservision Areds 2 Softgel] 1 cap PO BID 08/22 [History] Aspirin Enteric Coated [Aspirin EC] 81 mg PO DAILY #30 tablet. 08/26/17 [Rx] Atorvastatin [Lipitor] 40 mg PO HS #30 tablet 08/26/17 [Rx] Dorzolamide/Timolol [Cosopt] 1 drop BOTH EYES BID 30 Days #2 bottle 08/26/17 [Rx ] Latanoprost [Xalatan] 1 drop BOTH EYES HS 30 Days #2 bottle 08/26/17 [Rx] Omeprazole [PriLOSEC] 20 mg PO DAILY@0630 #30 capsule. 08/26/17 [Rx] predniSONE [PredniSONE] 60 mg PO DAILY #30 tablet 08/26/17 [Rx] Atropine 1% Opth Oint [Atropine 1% Opth Oint] 1 drop LEFT EYE BID 11/25/17 [ History] PrednisoLONE Acetate 1% Opth [PredFORTE 1%] 1 drop LEFT EYE QID 11/25/17 [ History] 3 Allergy/AdvReac Type Severity Reaction Status Date / Time codeine AdvReac Anaphylaxis Verified 08/22/17 17:48 All Systems PM: A 10-system review of systems was performed and is negative for pertinent findings except as documented above in the HPI. - Constitutional Constitutional: as per HPI, no chills, no fever(s), no night sweats - EENT Eyes: no change in vision, no discharge, no pain, no photophobia Ears: no ear discharge, no ear pain, no tinnitus Nose, mouth and throat: no dysphagia, no nasal discharge, no neck pain, no sore throat - Breasts Breasts: as per HPI - Cardiovascular Cardiovascular ROS IM: as per HPI, lightheadedness, no chest pain, no diaphoresis, no dyspnea, no palpitations, no syncope - Respiratory Respiratory: no cough, no dyspnea, no wheezing, no excessive phlegm production - Gastrointestinal Gastrointestinal: no abdominal pain, no diarrhea, no hematemesis, no hematochezia, no melena, no nausea, no vomiting - Genitourinary Genitourinary ROS male: as per HPI - Musculoskeletal Musculoskeletal ROS IM: no numbness, no tingling - Integumentary Integumentary IM: no rash, no unusual bruising - Neurological Neurological ROS: as per HPI, disequilibrium, dizziness, lack of coordination, loss of vision (In left eye), no confusion, no convulsions, no focal weakness, no numbness, no tingling, no tremor(s) - Psychiatric Psychiatric: as per HPI - Endocrine Endocrine IM: as per HPI - Hematologic/Lymphatic Hematologic/Lymphatic: no easy bruising - Allergic/Immunologic Allergic/Immunologic: as per HPI - Constitutional Vitals: Temp Pulse Resp BP Pulse Ox 97.7 F 72 14 136/82 97 11/25/17 19:11 11/25/17 19:11 11/25/17 19:11 11/25/17 19:11 11/25/17 19:11 General appearance: Present: cooperative, A&O X 3, pleasant, obese, answers questions appropriately - Head Head exam: Present: atraumatic, normocephalic - Eye Eye exam: Present: PERRL, conjuntiva pink, sclera anicteric Pupils: Present: PERRL - ENT ENT exam: Present: normal exam - Neck Neck exam general surgery: Present: normal inspection, supple, trachea midline. Absent: lymphadenopathy - Respiratory Respiratory exam: Present: CTAB. Absent: accessory muscle use, rales, rhonchi, wheezes - Cardiovascular Cardiovascular exam: Present: RRR, +S1, +S2. Absent: diastolic murmur, gallop, rubs, systolic murmur - GI/Abdominal GI/Abdominal exam: Present: normal bowel sounds, soft, no peritoneal signs. Absent: distended, tenderness - Rectal Rectal exam: Present: deferred - Additional comments: exam deferred. - Extremities Exam Extremities exam: Present: warm, radial pulses palpable and symmetrical. Absent : calf tenderness, cyanotic, pedal edema - Back Exam Back exam: Present: normal inspection - Neurological Exam Neurological exam: Present: CN II-XII intact, oriented X3, no focal deficits. Absent: pronater drift, facial droop, speech deficit - Psychiatric Psychiatric exam: Present: normal affect, normal mood - Skin Skin exam: Present: dry, intact Internal Med - H&P Results - EKG Data EKG shows normal: sinus rhythm - EKG Data Prior EKG available for review: no Interpretation IM: suggestive of ischemia EKG comments: 11/25/17 21:48 SINUS RHYTHM WITH OCCASIONAL SUPRAVENTRICULAR PREMATURE COMPLEXES ST DEVIATION AND MODERATE T-WAVE ABNORMALITY, CONSIDER ANTEROLATERAL ISCHEMIA Electronically Signed On 11-25-2017 19:48:13 EST by Alisson Vasquez - Diagnostic Studies CT scan - head Additional comments: EXAMINATION: CT OF THE HEAD WITHOUT CONTRAST 11/25/2017 10:39 am TECHNIQUE: CT of the head was performed without the administration of intravenous contrast. Dose modulation, iterative reconstruction, and/or weight based adjustment of the mA/kV was utilized to reduce the radiation dose to as low as reasonably achievable. COMPARISON: 08/22/2017 CT HISTORY: ORDERING SYSTEM PROVIDED HISTORY: dizziness Acute onset dizziness and vomiting today FINDINGS: BRAIN/VENTRICLES: The ventricles are normal. The sulci are prominent. Pattern is consistent with age-related atrophy. No extra-axial fluid collections, and no sign of recent intracranial hemorrhage. Decreased attenuation is noted within the periventricular white matter. Pattern is consistent with chronic small vessel ischemic change. No acute edema or mass effect. No mass lesions are detected. ORBITS: The visualized portion of the orbits demonstrate no acute abnormality. SINUSES: The visualized paranasal sinuses and mastoid air cells demonstrate no acute abnormality. SOFT TISSUES/SKULL: No acute abnormality of the visualized skull or soft tissues. CT/CT head/brain wo con IMPRESSION: No acute intracranial abnormality. D/ / Luan Gurrola MD / Luan Gurrola MD Interpreting Provider: Luan Gurrola MD <[email or web address] rafael - Last Filed: 11/26/17 07:28> Date of Encounter: 11/26/17 Internal Medicine - H&P: HPI History of present illness: Mr. Augustine is a 82 year old male All Systems PM: A 10-system review of systems was performed and is negative for pertinent findings except as documented above in the HPI. - Constitutional Vitals: Temp Pulse Resp BP Pulse Ox 97.4 F L 67 17 117/72 96 11/26/17 03:03 11/26/17 03:03 11/26/17 03:03 11/26/17 03:03 11/26/17 03:03 Internal Med - H&P Results - Labs CBC & Chem 7: 11/26/17 04:29 11/26/17 04:29 Labs: Short CBC 11/26/17 Range/Units 04:29 WBC 10.9 (4.3-11.1) K/mcL Hgb 13.0 (12.9-16.9) g/dL Hct 43.0 (37.5-50.1) % Plt Count 191 (140-400) K/mcL Neutrophils # 7.8 (1.6-8.9) K/mcL BMP 11/26/17 04:29 Sodium 140 Potassium 4.2 Chloride 104 Carbon Dioxide 31 H BUN 23 Creatinine 0.95 Glucose 84 Calcium 8.9 Liver Function 11/26/17 Range/Units 04:29 Total Bilirubin 0.6 (0.3-1.0) mg/dL AST 23 (13-39) Units/L ALT 21 (7-52) Units/L Alkaline Phosphatase 47 (34-104) Units/L Albumin 3.4 L (3.5-5.7) g/dL - Impressions ITS Impressions Chest X-Ray 11/25/17 21:59 IMPRESSION: Low lung volume study. Mild increased bronchial markings are again seen which may be related to chronic bronchitis. D/ / Liliane Nunez MD / Liliane Nunez MD Interpreting Provider: Liliane Nunez MD - Attending Attestation I examined this patient and my medical decision-making was reviewed with the Resident Physician. I agree with the documented findings, disposition and treatment plan as described except to the extent set forth below.
[2017-11-26 05:23] LABS: Basophils # 0.1 K/mcL (0.0-0.2); Basophils % 0.5 %; Eosinophils # 0.1 K/mcL (0.0-0.6); Eosinophils % 1.1 %; Immature Granulocytes % 1.3 % (0-4); Lymphocytes # 1.8 K/mcL (0.6-4.6); Lymphocytes % 16.8 %; Mean Corpuscular HGB Conc 30.2 g/dL (31.6-35.5); Mean Corpuscular Hemoglobin 24.4 pg (28.0-33.3); Mean Corpuscular Volume 80.8 fL (83.0-100.0); Mean Platelet Volume 10.3 fL (9.4-12.4); Monocytes % 9.2 %; Neutrophils # 7.8 K/mcL (1.6-8.9); Platelet Count 191 K/mcL (140-400); Red Blood Count 5.32 M/mcL (4.19-5.50); Red Cell Distribution Width 15.5 % (11.5-14.5); Segmented Neutrophils % 71.1 %
[2017-11-26 05:37] LABS: Hemoglobin A1C 5.8 %
[2017-11-26 05:57] LABS: Alanine Aminotransferase 21 Units/L (7-52); Albumin 3.4 g/dL (3.5-5.7); Alkaline Phosphatase 47 Units/L (34-104); Aspartate Amino Transferase 23 Units/L (13-39); BUN/Creatinine Ratio 24 (6-26); Bilirubin,Total 0.6 mg/dL (0.3-1.0); Blood Urea Nitrogen 23 mg/dL (8-23); Calcium 8.9 mg/dL (8.6-10.3); Carbon Dioxide 31 mEq/L (23-29); Chloride 104 mEq/L (98-107); Chol/HDL Ratio 2.8 (0-4.9); Cholesterol 147 mg/dL (< 200); Globulin 1.7 g/dL (2.4-3.5); Glucose 84 mg/dL (70-105); HDL Cholesterol 52 mg/dL (40-59); LDL Cholesterol,Calculated 70 mg/dL (0-99); Osmolality,Calculated 293 (280-300); Potassium 4.2 mEq/L (3.5-5.1); Sodium 140 mEq/L (136-145); Total Protein 5.1 g/dL (6.4-8.9); Triglycerides 123 mg/dL (< 150); eGFR For African Americans > 60 (> 60); eGFR For Non-African Americans > 60 (> 60)
[2017-11-26] MEDS: Aspirin Enteric Coated 81 MG Tablet PO SCH (09:59)
[2017-11-26] MEDS: predniSONE 20 MG TABLET PO SCH (09:59)
[2017-11-26] MEDS: PrednisoLONE Acetate 1% Opth 5 ML BOTTLE LEFT EYE SCH ×4 (10:00→21:10)
[2017-11-26] MEDS: Dorzolamide/Timolol OPTH 10 ML BOTTLE BOTH EYES SCH ×2 (10:00→21:09)
[2017-11-26] MEDS: ATROPINE 1% LEFT EYE SCH ×2 (10:00→21:09)
[2017-11-26] MEDS: OPTH LEFT EYE SCH ×2 (10:00→21:09)
--- NOTE | 2017-11-26 13:54 | Internal Med Progress Note ---
Date of Encounter: 11/26/17 Time of Encounter: 13:51 - Assessment and plan (1) Syncopal episodes Current Visit: Yes Status: Acute Assessment and plan: Patient did experience a syncopal episode yesterday witnessed by his daughter, after taking medication he is dizzy and nauseated and vomited he said down the chair and was unresponsive for few seconds, he had difficulty walking once he was aroused. CT of head was negative for any intracranial abnormality. He did have a carotid Doppler completed in July which did not show any occlusions. He also had an echo which did reveal probable severe aortic stenosis as well as mild to moderate mitral stenosis. We will obtain stat EKG and a repeat echo we will check troponin We will obtain orthostatic vital signs Cardiology has been consulted Continue with fall precautions Qualifiers: Syncope type: unspecified Qualified Code(s): R55 - Syncope and collapse (2) Central retinal artery occlusion of left eye Current Visit: Yes Status: Chronic Assessment and plan: Patient is being followed by [facility] ophthalmology. Recent change in medications placed on atenolol and atropine eyedrops which we will continue. Patient will continue as outpatient follow-up (3) Severe aortic valve stenosis Current Visit: No Status: Chronic Assessment and plan: The patient has history of severe aortic stenosis-daughter reports that he was to undergo a surgical procedure to replace the valve however cardiology at the [facility] felt it was not severe enough at this time. Patient is experiencing syncopal episode and concern for worsening aortic stenosis. Will obtain echocardiogram Consult to cardiology (4) DVT prophylaxis Current Visit: Yes Status: Acute Assessment and plan: Continue with Lovenox - Time Spent With Patient less than 15 minutes - Subjective Interval history: According to patient he had episode where he began to feel lightheaded and dizzy he was nauseous and began to vomit. Patient was off balance and had difficulty walking to chair he did sit down his daughter walked in and she was difficult to arouse. She attempted to assist him to the car he continued to have difficulty ambulating and seemed confused. He was brought to the ER and CT of his head was negative initial lab work was unremarkable EKG per ER read did show occasional supraventricular complexes and some ST deviation. He did have a change in his medication on Friday initiated on atenolol and atropine drops per nanotechnology engineering technologist due to elevated eye pressures. He has since returned to baseline states that he feels fine and does not feel dizzy anymore. Denies any chest pain or shortness of breath. Of note review of records did reveal echocardiogram that was performed and July which did show-probable severe aortic stenosis. When questioned concerning aortic stenosis daughter states that he is supposed to have surgery to repair the valve however cardiology at the [facility] felt it was not severe enough. - Constitutional Vitals: Temp Pulse Resp BP Pulse Ox 98.1 F 86 20 138/72 96 11/26/17 11:41 11/26/17 11:41 11/26/17 11:41 11/26/17 11:41 11/26/17 11:41 General appearance: Present: cooperative, A&O X 3, pleasant, obese, answers questions appropriately - Head Head exam: Present: atraumatic, normocephalic - Eye Eye exam: Present: PERRL, conjuntiva pink, sclera anicteric Pupils: Present: PERRL - Neck Neck exam general surgery: Present: supple, trachea midline. Absent: lymphadenopathy - Respiratory Respiratory exam: Present: CTAB. Absent: accessory muscle use, rales, rhonchi, wheezes - Cardiovascular Cardiovascular exam: Present: RRR, +S1, +S2, systolic murmur. Absent: diastolic murmur, gallop, rubs - GI/Abdominal GI/Abdominal exam: Present: normal bowel sounds, soft, no peritoneal signs. Absent: distended, tenderness - Extremities Exam Extremities exam: Present: pedal edema, warm, radial pulses palpable and symmetrical. Absent: calf tenderness, cyanotic - Neurological Exam Neurological exam: Present: CN II-XII intact, oriented X3, no focal deficits. Absent: pronater drift, facial droop, speech deficit - Skin Skin exam: Present: dry, intact Internal Medicine: Result - Labs CBC & Chem 7: 11/26/17 04:29 11/26/17 04:29 Labs: Short CBC 11/26/17 Range/Units 04:29 WBC 10.9 (4.3-11.1) K/mcL Hgb 13.0 (12.9-16.9) g/dL Hct 43.0 (37.5-50.1) % Plt Count 191 (140-400) K/mcL Neutrophils # 7.8 (1.6-8.9) K/mcL BMP 11/26/17 04:29 Sodium 140 Potassium 4.2 Chloride 104 Carbon Dioxide 31 H BUN 23 Creatinine 0.95 Glucose 84 Calcium 8.9 Liver Function 11/26/17 Range/Units 04:29 Total Bilirubin 0.6 (0.3-1.0) mg/dL AST 23 (13-39) Units/L ALT 21 (7-52) Units/L Alkaline Phosphatase 47 (34-104) Units/L Albumin 3.4 L (3.5-5.7) g/dL - Impressions Impressions Chest X-Ray 11/25/17 21:59 IMPRESSION: Low lung volume study. Mild increased bronchial markings are again seen which may be related to chronic bronchitis. D/ / Liliane Nunez MD / Liliane Nunez MD Interpreting Provider: Liliane Nunez MD Consult Discharge Plan - Plan [facility]errals: [facility] Care Provider[facility] - Johnny Lopez [Family Provider] -
[2017-11-26] MEDS: Latanoprost 2.5 ML BOTTLE BOTH EYES SCH (21:10)
[2017-11-27 04:51] LABS: Basophils % 0.3 %; Eosinophils % 0.4 %; Hematocrit 41.8 % (37.5-50.1); Immature Granulocytes % 0.9 % (0-4); Lymphocytes # 1.7 K/mcL (0.6-4.6); Lymphocytes % 15.9 %; Mean Corpuscular HGB Conc 31.1 g/dL (31.6-35.5); Mean Corpuscular Hemoglobin 24.8 pg (28.0-33.3); Mean Corpuscular Volume 79.6 fL (83.0-100.0); Mean Platelet Volume 10.2 fL (9.4-12.4); Monocytes # 0.8 K/mcL (0.0-1.3); Monocytes % 7.2 %; Neutrophils # 7.9 K/mcL (1.6-8.9); Platelet Count 184 K/mcL (140-400); Red Blood Count 5.25 M/mcL (4.19-5.50); Red Cell Distribution Width 15.2 % (11.5-14.5); Segmented Neutrophils % 75.3 %
[2017-11-27 05:11] LABS: Alanine Aminotransferase 20 Units/L (7-52); Albumin 3.2 g/dL (3.5-5.7); Albumin/Globulin Ratio 1.7 (1.1-2.2); Alkaline Phosphatase 49 Units/L (34-104); Aspartate Amino Transferase 21 Units/L (13-39); BUN/Creatinine Ratio 23 (6-26); Bilirubin,Total 0.7 mg/dL (0.3-1.0); Blood Urea Nitrogen 20 mg/dL (8-23); Calcium 8.7 mg/dL (8.6-10.3); Carbon Dioxide 28 mEq/L (23-29); Chloride 103 mEq/L (98-107); Globulin 1.9 g/dL (2.4-3.5); Glucose 108 mg/dL (70-105); Osmolality,Calculated 285 (280-300); Potassium 4.2 mEq/L (3.5-5.1); Sodium 136 mEq/L (136-145); Total Protein 5.1 g/dL (6.4-8.9); eGFR For African Americans > 60 (> 60); eGFR For Non-African Americans > 60 (> 60)
[2017-11-27] MEDS: *HR* Enoxaparin 40 MG/0.4 ML SYRINGE SQ SCH (06:40)
[2017-11-27] MEDS: Aspirin Enteric Coated 81 MG Tablet PO SCH (09:01)
[2017-11-27] MEDS: predniSONE 20 MG TABLET PO SCH (09:01)
[2017-11-27] MEDS: Dorzolamide/Timolol OPTH 10 ML BOTTLE BOTH EYES SCH ×2 (09:02→21:39)
[2017-11-27] MEDS: OPTH LEFT EYE SCH ×2 (09:02→21:40)
[2017-11-27] MEDS: PrednisoLONE Acetate 1% Opth 5 ML BOTTLE LEFT EYE SCH ×4 (09:02→21:40)
[2017-11-27] MEDS: ATROPINE 1% LEFT EYE SCH ×2 (09:02→21:40)
--- NOTE | 2017-11-27 10:51 | Cardiology Consult Note ---
<LanredeeAsmita - Last Filed: 11/27/17 15:02> Date of Encounter: 11/27/17 Time of Encounter: 10:42 Assessment and Plan (1) Severe aortic valve stenosis Current Visit: No Status: Chronic Patient with history of severe aortic stenosis- per daughter, patient's jacquard card lacer at the [facility] felt not severe enough for surgery. In the context of syncope, regardless of history of eye medications known to cause nausea and vomitting (atropine), will re-evaluate aortic valve. Patient adamant he does not wish to intervene surgically on valve. He is amenable to stay in the hospital while awaiting full echocardiogram. -BNP 227. ECG 11/26/2017 sinus rhythm with supraventricular premature complexes. -Orthostatics WNL. -obtain medical records from [place]. -Full echocardiogram (2) Syncope Current Visit: Yes Status: Acute Patient denying history of syncope, however, carotid doppler study performed in July 2017, which was negative for occlusions. Echocardiogram at that time () demonstrated LVEF 60%, moderate LV diastolic dysfunction, mild concentric left ventricular hypertrophy. Densely calcified aortic valve not well visualized, probably severe by doppler. Mild mitral regurgitation. Dense mitral annular calcification with probably mild-moderate mitral stenosis -Limited Echo 11/26/2017- LVEF 60%, mild moderate concentric left ventricular hypertrophy. RV small in size. -Will get Full Echo. Qualifiers: Syncope type: unspecified Qualified Code(s): R55 - Syncope and collapse Discussion w patient/family: The assessment and plan as outlined above was discussed with the patient and/or family members who expressed understanding and agreement. All questions were answered. Thank you for involving us in the care of your patient. Please call with any questions. History of Present Illness Consult date: 11/26/17 Requesting physician: Stephie Palomares Consult reason: Syncope, severe aortic stenosis Chief complaint: Syncope, nausea and vomitting History of present illness: Mr. Augustine is a 82 year old male with past medical history of hyperlipidemia and GERD who presented to [facility] ED on November 26 with chief complaint of dizziness, nausea, vomiting that began prior to arrival immediately following installation of prescription eyedrops, 2 of which were new to the patient. Patient states he got up that morning had his breakfast, and instill the eyedrops shortly afterwards. Patient states he became extremely dizzy at that time, with immediate nausea and vomiting afterwards. Per patient's family, he lost consciousness and demonstrated difficulty with ambulation. Patient states he called the squad at that time. He denies any previous history of anything similar. Patient denies any recent illness, fever , chills, headache, changes in vision, or focal weakness. He denies chest pain, palpitations, shortness of breath or extremity swelling. He denies abdominal pain currently, although he did feel abdominal pain when he became sick prior to arrival to the hospital. He denies diarrhea, constipation, melena, hematochezia, or hematemesis. [facility] He denies cardiac history other than aortic valve stenosis. Denies family history of cardiac disease. Previous smoker. Patient states he is currently free from any complaints, that he feels fine. He states he does not wish to intervene on his aortic valve unless absolutely necessary. Past Med Surg Social Fam HX - Past Medical History Attestation: Yes The following information was validated with the patient. Source: patient, old records reviewed Medical history: GERD, hyperlipidemia, valvular heart disease (probable severe aortic stenosis) Psychiatric history: no psych history - Past Surgical History Surgical History: cataract, cholecystectomy - Social History Smoking Status: Former smoker Smokeless Tobacco Status: No Alcohol use: none Drug use: none - Family History Father Race: Family Member Ethnicity: Non- Living Status: Age at : 73 Cause of : DM complications from amputation Hx Family Cardiac Disorders: Yes (Stroke) Hx Family Endocrine Disorder: Yes (DM) Hx Family Neurologic Disorders: Yes (cva) Mother Race: Family Member Ethnicity: Non- Living Status: Age at : 81 Cause of : Brain aneurysm Hx Family Cardiac Disorders: Yes (Aneurysm) Brother Race: Family Member Ethnicity: Non- Living Status: Age at : 50 Cause of : Cancer (Type unknown) Hx Family Cancer: Yes Sister Race: Family Member Ethnicity: Non- Living Status: Age at : 60 Cause of : DE Hx Family Cardiac Disorders: Yes (DE) Medications and Allergies Terazosin [Hytrin] 1 mg PO HS 08/22/17 [History] Vit C/E/Zn/Coppr/Lutein/Zeaxan [Preservision Areds 2 Softgel] 1 cap PO BID 08/22 [History] Aspirin Enteric Coated [Aspirin EC] 81 mg PO DAILY #30 tablet. 08/26/17 [Rx] Atorvastatin [Lipitor] 40 mg PO HS #30 tablet 08/26/17 [Rx] Dorzolamide/Timolol [Cosopt] 1 drop BOTH EYES BID 30 Days #2 bottle 08/26/17 [Rx ] Latanoprost [Xalatan] 1 drop BOTH EYES HS 30 Days #2 bottle 08/26/17 [Rx] Omeprazole [PriLOSEC] 20 mg PO DAILY@0630 #30 capsule. 08/26/17 [Rx] predniSONE [PredniSONE] 60 mg PO DAILY #30 tablet 08/26/17 [Rx] Atropine 1% Opth Oint [Atropine 1% Opth Oint] 1 drop LEFT EYE BID 11/25/17 [ History] PrednisoLONE Acetate 1% Opth [PredFORTE 1%] 1 drop LEFT EYE QID 11/25/17 [ History] Calcium Carbonate/Vitamin D3 [Calcium 600 + Vit D Tablet] 1 tab PO BID 11/26/17 [History] 3 Allergy/AdvReac Type Severity Reaction Status Date / Time codeine AdvReac Anaphylaxis Verified 08/22/17 17:48 All Systems Review: A 10-system review of systems was performed and is negative for pertinent findings except as documented above in the HPI. - Constitutional Constitutional: no chills, no daytime sleepiness, no fatigue, no fever(s), no frequent falls, no headache(s), no lethargy - Cardiovascular Cardiovascular: syncope, no chest pain at rest, no chest pain with exertion, no claudication, no diaphoresis, no irregular heart rhythm, no radiating jaw, neck or arm pain, no palpitations, no paroxysmal nocturnal dyspnea, no rapid heart rate, no slow heart rate - Respiratory Respiratory: no cough, no dyspnea - Gastrointestinal Gastrointestinal: no abdominal pain, no coffee ground emesis, no constipation, no diarrhea, no hematemesis, no hematochezia - Genitourinary Genitourinary: no dysuria, no hematuria - Integumentary Integumentary: no erythema, no rash - Neurological Neurological: dizziness, syncope, no abnormal speech, no focal weakness, no loss of vision, no memory loss, no tingling Physical Examination Vital Signs, Last 4 Hours Temp Pulse Pulse Pulse Pulse Resp BP 02/01/18 09:32 79 90 80 11/27/17 06:58 97.8 F 64 16 131/77 BP BP BP Pulse Ox 11/27/17 09:32 119/68 140/80 158/75 11/27/17 06:58 95 General: Conversant, No Apparent Distress HEENT: Atraumatic, Normocephaly, Mucus Membranes Moist Neck: No JVD, Normal carotid pulses Cardiac: Reg Rate and Rhythm, Other (systolic ejection murmur heard over left upper and lower sternal border as well as right upper sternal border. ) Lungs: Normal Breath Sounds, No Wheeze, Rales, Rhonchi Neuro: Alert and responsive, No focal deficits noted Abdomen: Soft, Non-Tender Musculoskeletal: No Chest Wall Tenderness Extremities: No Clubbing, No Cyanosis, Other (1+ pitting edema bilateral lower extremities) Results 11/27/17 03:48 11/27/17 03:48 Lab Results 11/26/17 11/27/17 11/27/17 13:54 03:48 03:48 WBC 10.5 Hgb 13.0 Hct 41.8 Plt Count 184 Sodium 136 Potassium 4.2 Chloride 103 Carbon Dioxide 28 BUN 20 Creatinine 0.87 Glucose 108 H Calcium 8.7 Total Bilirubin 0.7 AST 21 ALT 20 Alkaline Phosphatase 49 Troponin I 0.05 H* Consult Discharge Plan - Plan [facility]errals: [facility]Primary Care Provider[facility] - <Leo Vasquez - Last Filed: 11/27/17 15:22> Date of Encounter: 11/27/17 - Attending Attestation I examined this patient and my medical decision-making was reviewed with the Resident Physician. I agree with the documented findings, disposition and treatment plan as described except to the extent set forth below. Known aortic stenosis. Presents with possible syncope after using eyedrops. Will need to reevaluate aortic valve. Assessment and Plan Discussion w patient/family: The assessment and plan as outlined above was discussed with the patient and/or family members who expressed understanding and agreement. All questions were answered. Thank you for involving us in the care of your patient. Please call with any questions. History of Present Illness History of present illness: Mr. Augustine is a 82 year old male All Systems Review: A 10-system review of systems was performed and is negative for pertinent findings except as documented above in the HPI. Results 11/27/17 03:48 11/27/17 03:48 Lab Results 11/27/17 11/27/17 03:48 03:48 WBC 10.5 Hgb 13.0 Hct 41.8 Plt Count 184 Sodium 136 Potassium 4.2 Chloride 103 Carbon Dioxide 28 BUN 20 Creatinine 0.87 Glucose 108 H Calcium 8.7 Total Bilirubin 0.7 AST 21 ALT 20 Alkaline Phosphatase 49
--- NOTE | 2017-11-27 17:13 | Electrocardiograph Report ---
[place] [address] Test Date: 2017-11-26 Pat Name: Ata Augustine Department: 113 Room: 3B Gender: M Ssis Ssrs Developer: : 1935 Requested By: Awa Mcclendon Order Number: [id number] Reading MD: Leo Vasquez Measurements Intervals [place] Rate: 80 P: 71 FL: 154 QRS: 2 QRSD: 94 T: 34 QT: 361 QTc: 397 Interpretive Statements SINUS RHYTHM WITH OCCASIONAL SUPRAVENTRICULAR PREMATURE COMPLEXES NONSPECIFIC ST & T-WAVE ABNORMALITY Electronically Signed On 11-27-2017 17:12:14 EST by Leo Vasquez
--- NOTE | 2017-11-27 17:13 | Electrocardiograph Report ---
[address] [address] Test Date: 2017-11-26 Pat Name: Ata Augustine Department: 113 Room: 3B Gender: M Finance Admin: : 1935 Requested By: Stephie Palomares Order Number: [id number] Reading MD: Leo Vasquez Measurements Intervals [place] Rate: 78 P: SD: 0 QRS: -2 QRSD: 109 T: 270 QT: 488 QTc: 521 Interpretive Statements SUPRAVENTRICULAR RHYTHM OTHERWISE UNABLE TO INTERPRET Electronically Signed On 11-27-2017 17:12:05 EST by Leo Vasquez
--- NOTE | 2017-11-27 19:35 | Internal Med Progress Note ---
Date of Encounter: 11/27/17 Time of Encounter: 13:00 - Assessment and plan (1) Syncopal episodes Current Visit: Yes Status: Acute Assessment and plan: Orthostatics within normal limits Previous carotid Dopplers were without any stenosis or occlusion Echo completed was limited unable to view valves will review echocardiogram Qualifiers: Syncope type: unspecified Qualified Code(s): R55 - Syncope and collapse (2) Central retinal artery occlusion of left eye Current Visit: Yes Status: Chronic Assessment and plan: Patient is being followed by [facility] ophthalmology. Recent change in medications placed on atenolol and atropine eyedrops which we will continue. Patient will continue as outpatient follow-up (3) Severe aortic valve stenosis Current Visit: No Status: Chronic Assessment and plan: Echocardiogram was limited unable to view valves will repeat echocardiogram Cardiology has been consulted however patient has voiced that he does not wish to intervene surgically on valves and would like to be discharged tomorrow regardless of the results of the echocardiogram [facility] (4) DVT prophylaxis Current Visit: Yes Status: Acute Assessment and plan: Continue with Lovenox - Time Spent With Patient less than 15 minutes - Subjective Interval history: Miles patient denies any chest pain or shortness of breath he seems clinically stable. He does voice that he does not wish to have a surgery on his valves at this time however he is cooperative with completing full echocardiogram. However he would like to be discharged tomorrow regardless of the results. - Constitutional Vitals: Temp Pulse Resp BP Pulse Ox 98 F 66 16 129/78 96 11/27/17 16:03 11/27/17 16:03 11/27/17 16:03 11/27/17 16:03 11/27/17 16:03 General appearance: Present: cooperative, A&O X 3, pleasant, obese, answers questions appropriately - Head Head exam: Present: atraumatic, normocephalic - Eye Eye exam: Present: PERRL, conjuntiva pink, sclera anicteric Pupils: Present: PERRL - Neck Neck exam general surgery: Present: supple, trachea midline. Absent: lymphadenopathy - Respiratory Respiratory exam: Present: CTAB. Absent: accessory muscle use, rales, rhonchi, wheezes - Cardiovascular Cardiovascular exam: Present: RRR, +S1, +S2, systolic murmur. Absent: diastolic murmur, gallop, rubs - GI/Abdominal GI/Abdominal exam: Present: normal bowel sounds, soft, no peritoneal signs. Absent: distended, tenderness - Extremities Exam Extremities exam: Present: warm, radial pulses palpable and symmetrical. Absent : calf tenderness, cyanotic, pedal edema - Neurological Exam Neurological exam: Present: CN II-XII intact, oriented X3, no focal deficits. Absent: pronater drift, facial droop, speech deficit - Skin Skin exam: Present: dry, intact Internal Medicine: Result - Labs CBC & Chem 7: 11/27/17 03:48 11/27/17 03:48 Labs: Short CBC 11/27/17 Range/Units 03:48 WBC 10.5 (4.3-11.1) K/mcL Hgb 13.0 (12.9-16.9) g/dL Hct 41.8 (37.5-50.1) % Plt Count 184 (140-400) K/mcL Neutrophils # 7.9 (1.6-8.9) K/mcL BMP 11/27/17 03:48 Sodium 136 Potassium 4.2 Chloride 103 Carbon Dioxide 28 BUN 20 Creatinine 0.87 Glucose 108 H Calcium 8.7 Liver Function 11/27/17 Range/Units 03:48 Total Bilirubin 0.7 (0.3-1.0) mg/dL AST 21 (13-39) Units/L ALT 20 (7-52) Units/L Alkaline Phosphatase 49 (34-104) Units/L Albumin 3.2 L (3.5-5.7) g/dL - Impressions Impressions Echocardiogram Limited Views 11/26/17 13:57 Impressions: LVEF 60%. Mild-moderate concentric left ventricular hypertrophy. RV is small in size. Function appears normal. Valves were not evaluated on this study - please refer to recent Echo dated 11/25/2016. Left Ventricular Wall Motion: Rest Echo Findings All wall segments showed normal motion. Findings: Study Quality * Technically adequate exam. ECG Findings * Normal sinus rhythm. Left Ventricle * LVEF 60%. * Mild-moderate concentric left ventricular hypertrophy. Right Ventricle * RV is small in size. Function appears normal. Left Atrium * Severely dilated left atrium. Right Atrium * Right atrium is not well visualized. Consult Discharge Plan - Plan [facility]errals: [facility] [Primary Care Provider] -
[2017-11-27] MEDS: Latanoprost 2.5 ML BOTTLE BOTH EYES SCH (21:39)
[2017-11-28 05:09] LABS: Basophils % 0.3 %; Eosinophils % 0.2 %; Hemoglobin 13.5 g/dL (12.9-16.9); Lymphocytes # 1.8 K/mcL (0.6-4.6); Lymphocytes % 15.2 %; Mean Corpuscular HGB Conc 30.7 g/dL (31.6-35.5); Mean Corpuscular Hemoglobin 24.5 pg (28.0-33.3); Mean Platelet Volume 10.2 fL (9.4-12.4); Monocytes # 0.9 K/mcL (0.0-1.3); Monocytes % 7.2 %; Nucleated Red Blood Cells 0.2 /100 WBC (0); Platelet Count 195 K/mcL (140-400); Red Cell Distribution Width 14.9 % (11.5-14.5); Segmented Neutrophils % 76.1 %
[2017-11-28 05:36] LABS: Alanine Aminotransferase 27 Units/L (7-52); Albumin 3.4 g/dL (3.5-5.7); Albumin/Globulin Ratio 1.6 (1.1-2.2); Alkaline Phosphatase 50 Units/L (34-104); Aspartate Amino Transferase 19 Units/L (13-39); BUN/Creatinine Ratio 26 (6-26); Bilirubin,Total 0.7 mg/dL (0.3-1.0); Blood Urea Nitrogen 22 mg/dL (8-23); Calcium 8.9 mg/dL (8.6-10.3); Carbon Dioxide 27 mEq/L (23-29); Chloride 103 mEq/L (98-107); Globulin 2.1 g/dL (2.4-3.5); Glucose 111 mg/dL (70-105); Osmolality,Calculated 290 (280-300); Potassium 4.1 mEq/L (3.5-5.1); Sodium 138 mEq/L (136-145); Total Protein 5.5 g/dL (6.4-8.9); eGFR For African Americans > 60 (> 60); eGFR For Non-African Americans > 60 (> 60)
[2017-11-28] MEDS: *HR* Enoxaparin 40 MG/0.4 ML SYRINGE SQ SCH (05:54)
--- NOTE | 2017-11-28 07:18 | Discharge Summary ---
Date of Encounter: 11/28/17 Time of Encounter: 07:17 - Discharge Diagnosis (1) Syncopal episodes Priority: Primary Status: Acute Comments: (1) Syncopal episodes Current Visit: Yes Status: Acute Assessment and plan: Orthostatics within normal limits Previous carotid Dopplers were without any stenosis or occlusion Echo completed-shows severe aortic stenosis unsure if this has contributed to this episode advised-patient is not interested in pursuing any intervention at this time advised patient to follow-up with [facility] cardiology Qualifiers: Syncope type: unspecified Qualified Code(s): R55 - Syncope and collapse (2) Central retinal artery occlusion of left eye Priority: Secondary Status: Chronic Comments: Patient is being followed by [facility] ophthalmology. Recent change in medications placed on atenolol and atropine eyedrops which we will continue. Patient will continue as outpatient follow-up (3) Severe aortic valve stenosis Priority: Secondary Status: Chronic Comments: Echocardiogram was limited unable to view valves will repeat echocardiogram- which does reveal severe aortic stenosis Cardiology has been consulted however patient has voiced that he does not wish to intervene surgically at this time-he would like to follow-up with the [place] cardiology and pursue surgical options through that venue - Discharge Medications Home Medications: Terazosin [Hytrin] 1 mg PO HS 08/22/17 [History] Vit C/E/Zn/Coppr/Lutein/Zeaxan [Preservision Areds 2 Softgel] 1 cap PO BID 08/22 [History] Aspirin Enteric Coated [Aspirin EC] 81 mg PO DAILY #30 tablet. 08/26/17 [Rx] Atorvastatin [Lipitor] 40 mg PO HS #30 tablet 08/26/17 [Rx] Dorzolamide/Timolol [Cosopt] 1 drop BOTH EYES BID 30 Days #2 bottle 08/26/17 [Rx ] Latanoprost [Xalatan] 1 drop BOTH EYES HS 30 Days #2 bottle 08/26/17 [Rx] Omeprazole [PriLOSEC] 20 mg PO DAILY@0630 #30 capsule. 08/26/17 [Rx] predniSONE [PredniSONE] 60 mg PO DAILY #30 tablet 08/26/17 [Rx] Atropine 1% Opth Oint 1 drop LEFT EYE BID 11/25/17 [History] PrednisoLONE Acetate 1% Opth [PredFORTE 1%] 1 drop LEFT EYE QID 11/25/17 [ History] Calcium Carbonate/Vitamin D3 [Calcium 600 + Vit D Tablet] 1 tab PO BID 11/26/17 [History] Allergies/Adverse Reactions: 3 Allergy/AdvReac Type Severity Reaction Status Date / Time codeine AdvReac Anaphylaxis Verified 08/22/17 17:48 Procedures/tests Complete & Pending: Procedures Performed prior 72 hours Category Date Time Status ECG 12 lead ECG [ECG] Routine Y 11/26/17 14:15 Completed EKG [ECG 12 lead ECG] [ECG] Stat Y 11/26/17 13:48 Completed EV echocardiogram Routine Y 11/27/17 10:05 Completed EV limited echocardiogram Routine Y 11/26/17 13:57 Completed Date of admission: 11/25/17 15:56 [facility] care physician[facility] Consults: 11/25/17 17:03 Consult to Corporate Strategist [CONS] Routine Reason for SW Consult: Please assess patient for possible home needs for post -discharge planning 11/25/17 18:02 Consult to Occupational Therapy [CONS] Routine Comment: Evaluate, develop and implement POC Reason for Consult: Patient and daughter report unsteadiness on his feet and feel that a walker/cane may be appropriate. Please assess patient for ambulation strength, stability, safety, and possible home assistive needs for post-discharge planning. 11/25/17 18:03 Consult to Physical Therapy [CONS] Routine Comment: Evaluate, develop and implement POC Reason for Consult: Patient and daughter report unsteadiness on his feet and feel that a walker/cane may be appropriate. Please assess patient for ambulation strength, stability, safety, and possible home assistive needs for post-discharge planning. 11/26/17 13:58 Consult to Cardiology [CONS] Routine Comment: Consulting Provider: Cardiology [place] Reason for Consult: syncope- aortic stenosis Time Notified: 13:58 Call Completed: Yes Discharging clinician: Stephie Palomares Anticipated date of discharge: 11/28/17 - Patient Status Disposition: Home, Self-Care Condition: Good Functional capacity at discharge: independent ambulation Overall status at discharge: patient is progressing back to baseline - Discharge Instructions Instructions: Aortic Stenosis (GEN), Syncope (DC), Peripheral Vascular Disorders (DC) Follow [facility] With: [facility]Primary Care Provider[facility] - ([facility] ) - Diet and Activity Activity: increase activity as tolerated, resume usual activities as tolerated Diet: low fat, low cholesterol Hospital course: Mr. Augustine is a 82 year old male passed with a history of hyperlipidemia and GERD he presented to [facility] on March 29 first chief complaint of dizziness nausea vomiting and began after instilling prescription eyedrops. He got up that morning had breakfast and so eyedrops shortly afterward patient became extremely dizzy and nauseous and vomited he did have headaches with change in visions some focal weakness. He denies any chest pain palpitations shortness of breath or extremity swelling. He did have some difficulty ambulating. He presented to the ER CT was negative lab work within normal limits previous carotids Dopplers revealed no stenosis or occlusions. Orthostatics within normal limits EKG sinus rhythm with supraventricular premature complexes He does have a history of aortic valve stenosis and echo completed in July suggest severe aortic stenosis. At that time he patient states that the physician did not feel that surgical intervention was necessary. Cardiology was consult dated reviewed current echo however it was limited and valves were not visualized. Repeat echo was completed did show severe aortic stenosis He verbalized understanding and again expressed that he did not want surgery at this time however he may consider surgery through the [facility]. I advised patient to continue with home medication as well as follow-up as outpatient with cardiology at the [facility] as well as his primary care physician. And to return to the ER if he feels his symptoms are worsening. Requesting to be discharged. Presently patient is hemodynamically stable at this time and ready for discharge he is hemodynamically stable at this time. Time spent discussing smoking cessation with patient: 3 to 10 minutes - Time Spent with Patient Total time spent providing and/or coordinating discharge services: Less than 30 minutes - Constitutional Vitals: Temp Pulse Resp BP Pulse Ox 97.7 F 65 16 152/81 96 11/28/17 07:11 11/28/17 07:11 11/28/17 07:11 11/28/17 07:11 11/28/17 07:11 General appearance: Present: cooperative, A&O X 3, pleasant, obese, answers questions appropriately - Head Head exam: Present: atraumatic, normocephalic - Eye Eye exam: Present: PERRL, conjuntiva pink, sclera anicteric Pupils: Present: PERRL - Respiratory Respiratory exam: Present: CTAB. Absent: accessory muscle use, rales, rhonchi, wheezes - Cardiovascular Cardiovascular exam: Present: RRR, +S1, +S2, systolic murmur. Absent: diastolic murmur, gallop, rubs - GI/Abdominal GI/Abdominal exam: Present: normal bowel sounds, soft, no peritoneal signs. Absent: distended, tenderness - Extremities Exam Extremities exam: Present: warm, radial pulses palpable and symmetrical. Absent : calf tenderness, cyanotic, pedal edema - Neurological Exam Neurological exam: Present: CN II-XII intact, oriented X3, no focal deficits. Absent: pronater drift, facial droop, speech deficit - Skin Skin exam: Present: dry, intact
[2017-11-28] MEDS: Dorzolamide/Timolol OPTH 10 ML BOTTLE BOTH EYES SCH (09:18)
[2017-11-28] MEDS: OPTH LEFT EYE SCH (09:18)
[2017-11-28] MEDS: Aspirin Enteric Coated 81 MG Tablet PO SCH (09:18)
[2017-11-28] MEDS: ATROPINE 1% LEFT EYE SCH (09:18)
[2017-11-28] MEDS: predniSONE 20 MG TABLET PO SCH (09:18)
[2017-11-28] MEDS: PrednisoLONE Acetate 1% Opth 5 ML BOTTLE LEFT EYE SCH ×2 (09:19→14:10)
--- NOTE | 2017-11-28 12:10 | Cardiology Progress Note ---
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 In the context of syncope, regardless of history of eye medications known to cause nausea and vomitting (atropine), will re-evaluate aortic valve. Patient adamant he does not wish to intervene surgically on valve. -BNP 227. ECG 11/26/2017 sinus rhythm with supraventricular premature complexes. -Orthostatics WNL. -obtain medical records from [place]. -Echocardiogram 11/27/2017- LVEF 60%, normal LV chamber size and function, mild concentric left ventricular hypertrophy, mild left ventricular diastolic dysfunction, normal right ventricular structure and function, severely dilated left atrium. The aortic valve appears heavily calcified. Indeterminate number of leaflets. Severe aortic stenosis. Mean gradient 42 mmHg, peak velocity 4.08 m/s. Severe calcification of the mitral annulus and mitral valve leaflets. Moderate mitral stenosis, mean gradient 8 mmHg. Heart rate 80 bpm. -The risks of symptomatic severe aortic stenosis were explained to patient. He remains persistent that he does not wish to undergo any intervention. Will discuss with Dr. Vasquez. (2) Syncope Current Visit: Yes Status: Acute Patient denying history of syncope, however, carotid doppler study performed in July 2017, which was negative for occlusions. Echocardiogram at that time () demonstrated LVEF 60%, moderate LV diastolic dysfunction, mild concentric left ventricular hypertrophy. Densely calcified aortic valve not well visualized, probably severe by doppler. Mild mitral regurgitation. Dense mitral annular calcification with probably mild-moderate mitral stenosis -Limited Echo 11/26/2017- LVEF 60%, mild moderate concentric left ventricular hypertrophy. RV small in size. -Echocardiogram 11/27/2017- LVEF 60%, normal LV chamber size and function, mild concentric left ventricular hypertrophy, mild left ventricular diastolic dysfunction, normal right ventricular structure and function, severely dilated left atrium. The aortic valve appears heavily calcified. Indeterminate number of leaflets. Severe aortic stenosis. Mean gradient 42 mmHg, peak velocity 4.08 m/s. Severe calcification of the mitral annulus and mitral valve leaflets. Moderate mitral stenosis, mean gradient 8 mmHg. Heart rate 80 bpm. Unclear if syncope directly related to severe . Regardless, will discuss prognosis of severe aortic stenosis with patient. Qualifiers: Syncope type: unspecified Qualified Code(s): R55 - Syncope and collapse Discussion w patient/family: The assessment and plan as outlined above was discussed with the patient and/or family members who expressed understanding and agreement. All questions were answered. Thank you for involving us in the care of your patient. Please call with any questions. Subjective Principal diagnosis: Severe aortic stenosis Interval history: Mr. Augustine is an 82 yo male with PMHx of HLD, GERD, and left sided blindness. Patient resting comfortably overnight. He has no complaints this morning. He is adamant that he does not wish to undergo any interventions on his heart. He states he has lived a long life, and unless his heart is causing him pain, he wishes to leave it alone. He denies any chest pain, palpitations, dizziness, lightheadedness, or headaches. He denies any abdominal pain, nausea, vomiting, or diarrhea. Objective General: Conversant, No Apparent Distress HEENT: Atraumatic, Normocephaly, Mucus Membranes Moist Cardiac: Reg Rate and Rhythm, Other (systolic ejection murmur) Lungs: Normal Breath Sounds, No Wheeze, Rales, Rhonchi Neuro: Alert and responsive, No focal deficits noted Abdomen: Soft, Non-Tender Musculoskeletal: No Chest Wall Tenderness Extremities: No Clubbing, No Cyanosis, Other (1 plus pitting edema bilaterally) Results 11/28/17 04:30 11/28/17 04:30 Lab Results 11/28/17 11/28/17 04:30 04:30 WBC 11.8 H Hgb 13.5 Hct 44.0 Plt Count 195 Sodium 138 Potassium 4.1 Chloride 103 Carbon Dioxide 27 BUN 22 Creatinine 0.86 Glucose 111 H Calcium 8.9 Total Bilirubin 0.7 AST 19 ALT 27 Alkaline Phosphatase 50 Consult Discharge Plan - Plan Instructions: Syncope (DC), Peripheral Vascular Disorders (DC) Referrals: [facility] [Primary Care Provider] -
[2017-11-28 13:03] VITALS: BP 123/69
== END 2017-11-28 16:00 | disposition home or self-care (01) ==
LOC: 3BNU
PROVIDERS: ADMIT Internal Medicine Cardiovascular Disease; ATTEND Internal Medicine Cardiovascular Disease